=== PATIENT | male | born 1950 | race Caucasian/White ===

== ENCOUNTER 2016-06-02 14:26 | Inpatient (IN) | payer OTHER ==
[~2016-06-02] VITALS: Ht 185.4 cm; Wt 134.9 kg
[2016-06-02] VITALS (8 sets, daily range): BP systolic 111–118; BP diastolic 55–57; PULSE 53–60; RESP 24; TEMP 96.8–97.2; O2SAT 100
[~2016-06-02 14:26] MED LIST: ALLO100T PO; ASPI325T PO; METO50TA PO; PRED50TA PO
[2016-06-02] MEDS ORDERED: PROPOFOL 1000 MG/100 ML INJ 100 ML ONE (14:32)
[2016-06-02 14:48] LABS: AUTOMATED NEUTROPHIL # 6.2 TH/MM3 (1.8-7.7); BASOPHIL # 0.1 TH/MM3 (0-0.2); BASOPHIL % 0.9 % (0.0-2.0); EOSINOPHIL # 0.1 TH/MM3 (0-0.4); EOSINOPHIL % 1.4 % (0.0-4.0); HEMATOCRIT 37.3 % (39.0-51.0); HEMO FLAGS DIFF FINAL; LYMPH % 18.6 % (9.0-44.0); LYMPHOCYTE # 1.6 TH/MM3 (1.0-4.8); MEAN CELL VOLUME 89.3 FL (80.0-100.0); MEAN CORPUSCULAR HEMOGLOBIN 30.4 PG (27.0-34.0); MEAN CORPUSCULAR HGB CONC 34.1 % (32.0-36.0); MONO % 6.5 % (0.0-8.0); NEUT % 72.6 % (16.0-70.0); PLATELET COUNT 231 TH/MM3 (150-450); RED BLOOD COUNT 4.17 MIL/MM3 (4.50-5.90); RED CELL DISTRIBUTION WIDTH 14.1 % (11.6-17.2); WHITE BLOOD COUNT 8.5 TH/MM3 (4.0-11.0)
[2016-06-02 14:50] LABS: I-STAT POTASSIUM 5.4 MMOL/L (3.5-4.9)
[2016-06-02] MEDS ORDERED: IOHEXOL 350 MG/ML 10 ML VIAL (for RAD DIAG) IV ONE (14:54)
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
[2016-06-02 14:58] LABS: APTT (PATIENT) 21.1 SEC (24.3-30.1); INTERNATIONAL NORMALIZED RATIO 0.9 RATIO; PROTHROMBIN TIME - PATIENT 10.4 SEC (9.8-11.6)
[2016-06-02] MEDS ORDERED: ceFAZolin 2 GM PREMIX 50 ML IV STA (15:10)
[2016-06-02] MEDS ORDERED: DIPHTH/TETANUS/ACEL PERTUSSIS (BOOSTER) 0.5 ML VIAL/PFS IM ONE ×2 (15:10→15:28)
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
[2016-06-02] MEDS ORDERED: ceFAZolin 2 GM PREMIX 50 ML ONE (15:28)
[2016-06-02] MEDS ORDERED: SODIUM CHLOR 0.9% 1000 ML INJ 1,000 ML IV SCH (15:46)
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
[2016-06-02] MEDS: fentaNYL DRIP 250 ML IV SCH (16:00)
[2016-06-02] MEDS ORDERED: SODIUM CHLORIDE 0.9% FLUSH 10 ML FLUSH IV FLUSH PRN ×2 (16:00→18:00)
[2016-06-02] MEDS ORDERED: PROPOFOL 1000 MG/100 ML INJ 100 ML IV SCH (16:00)
[2016-06-02] MEDS ORDERED: CHLORHEXIDINE GLUCONATE 2 % 1 PACK (2 CLOTHS) TOP PRN ×2 (16:00→18:00)
[2016-06-02] MEDS ORDERED: MISCELLANEOUS NURSING INFORMATION XX SCH ×2 (16:00→18:00)
[2016-06-02] MEDS ORDERED: fentaNYL DRIP 250 ML IV SCH (16:00)
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
[2016-06-02] MEDS ORDERED: NOREPINEPHRINE-DEXTROSE DRIP 250 ML IV SCH (16:45)
[2016-06-02] MEDS ORDERED: SODIUM CHLORIDE 0.9% FLUSH 10 ML FLUSH IVF PRN (16:45)
[2016-06-02] MEDS ORDERED: SODIUM CHLOR 0.9% 1000 ML INJ 1,000 ML IV ONE ×5 (16:45→23:15)
[2016-06-02] MEDS ORDERED: TERBUTALINE INJ 1 MG/ML AMP SQ PRN ×2 (16:45→21:15)
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
--- NOTE | 2016-06-02 17:21 | PD.PROCEDR ---
Procedure Note Procedure DATE: 06/02/2016 ARTERIAL LINE PLACEMENT: [] vein. Ultrasound-guided INDICATION: Hemodynamic access DESCRIPTION OF THE PROCEDURE The patient was placed in supine position. The skin was cleansed with Chloraprep. Additional barrier precautions included large sterile drape, sterile gloves, sterile gown, face mask, and hat. 1 % lidocaine was used for local anesthesia. Under direct ultrasound guidance and on second attempt, the left femoral artery was accessed with an introducer needle. The guide wire was advanced. Using Seldinger technique a 20 [place] 12 cm femoral artery catheter was advanced to a depth of 12 centimeters. The guide wire was removed. The single port had return of bright red pulsatile blood and flushed easily with saline. The central line was secured with 2.0 silk. A sterile dressing with antibiotic disc was applied. ESTIMATED BLOOD LOSS: Minimal COMPLICATIONS: No apparent complications. Sha Tapia MD Jun 02, 2016 17:21
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
[2016-06-02 17:37] LABS: HEMATOCRIT 29.2 % (39.0-51.0); MEAN CELL VOLUME 90.4 FL (80.0-100.0); MEAN CORPUSCULAR HEMOGLOBIN 30.1 PG (27.0-34.0); MEAN CORPUSCULAR HGB CONC 33.3 % (32.0-36.0); PLATELET COUNT 193 TH/MM3 (150-450); RED BLOOD COUNT 3.23 MIL/MM3 (4.50-5.90); RED CELL DISTRIBUTION WIDTH 14.3 % (11.6-17.2); REVIEW FLAG FINAL; WHITE BLOOD COUNT 10.8 TH/MM3 (4.0-11.0)
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
[2016-06-02 17:46] LABS: APTT (PATIENT) 21.9 SEC (24.3-30.1); PROTHROMBIN TIME - PATIENT 11.2 SEC (9.8-11.6)
[2016-06-02] MEDS: ARTIFICIAL TEARS OPTH SOLN 15 ML BTL EACH EYE SCH (18:00)
[2016-06-02] MEDS ORDERED: ONDANSETRON HCL 4 MG/2 ML VIAL IV PRN (18:00)
[2016-06-02] MEDS ORDERED: 3% SALINE INJ 500 ML IV SCH (18:00)
[2016-06-02] MEDS ORDERED: levETIRAcetam INJ 500 MG in SODIUM CHLORIDE 0.9% INJ 100 ML IV ONE (18:00)
[2016-06-02 18:13] LABS: BLOOD GAS CARBOXYHEMOGLOBIN 0.5 % (0-4); BLOOD GAS HCO3 17 mmol/L (22-26); BLOOD GAS METHEMOGLOBIN 1.2 % (0-2); BLOOD GAS O2 HGB SATURATION 98 % (90-100); BLOOD GAS OXYGEN CONTENT 14.2 Vol % (12.0-20.0); BLOOD GAS PCO2 44 mmHg (38-42); BLOOD GAS PO2 495 mmHg (61-120); BLOOD GAS TOTAL HGB 9.4 G/DL (12.0-16.0); CRITICAL VALUE YES; DRAW SITE ART LINE; FIO2 100 %; OXYGEN DEVICE VENTILATOR; STAT NO; TEMP CORR TO 98.6
[2016-06-02 18:15] LABS: ALKALINE PHOSPHATASE 63 U/L (45-117); ALT (GPT) 22 U/L (12-78); ANION GAP 9 MEQ/L (5-15); AST (GOT) 30 U/L (15-37); BICARBONATE 20.4 MEQ/L (21.0-32.0); BLOOD UREA NITROGEN 32 MG/DL (7-18); CHLORIDE 115 MEQ/L (98-107); CREATINE KINASE 758 U/L (39-308); GLOMERULAR FILTRATION RATE 37 ML/MIN (>89); POTASSIUM 4.9 MEQ/L (3.5-5.1); SODIUM (NA) 144 MEQ/L (136-145); TOTAL BILIRUBIN ADULT 0.4 MG/DL (0.2-1.0)
[2016-06-02] MEDS ORDERED: SODIUM BICARBONATE 8.4% INJ 50 MEQ/50 ML SYR ONE (18:16)
[2016-06-02] MEDS: MIDAZOLAM 100 MG/ML INJ 100 ML IV SCH (18:22)
[2016-06-02 19:16] LABS: BLOOD GAS CARBOXYHEMOGLOBIN 0.7 % (0-4); BLOOD GAS HCO3 19 mmol/L (22-26); BLOOD GAS O2 HGB SATURATION 98 % (90-100); BLOOD GAS OXYGEN CONTENT 13.6 Vol % (12.0-20.0); BLOOD GAS PCO2 42 mmHg (38-42); BLOOD GAS PO2 208 mmHg (61-120); BLOOD GAS TOTAL HGB 9.6 G/DL (12.0-16.0); CRITICAL VALUE YES; DRAW SITE ART LINE; FIO2 50 %; OXYGEN DEVICE VENTILATOR; TEMP CORR TO 98.6; VENT SETTINGS VAC/20/600/PEEP+5
[2016-06-02 19:17] LABS: STAT NO; ULNAR PULSE PRESENT
[2016-06-02 20:00] LABS: BLOOD GAS BASE EXCESS -6.6 mmol/L (-2-2); BLOOD GAS CARBOXYHEMOGLOBIN 0.8 % (0-4); BLOOD GAS HCO3 18 mmol/L (22-26); BLOOD GAS O2 HGB SATURATION 98 % (90-100); BLOOD GAS OXYGEN CONTENT 12.9 Vol % (12.0-20.0); BLOOD GAS PCO2 36 mmHg (38-42); BLOOD GAS PO2 185 mmHg (61-120); BLOOD GAS TOTAL HGB 9.1 G/DL (12.0-16.0); CRITICAL VALUE NO; OXYGEN DEVICE VENTILATOR; TEMP CORR TO 98.6
[2016-06-02] MEDS ORDERED: PHYTONADIONE INJ 10 MG in SODIUM CHLORIDE 0.9% INJ 50 ML IV ONE (20:00)
[2016-06-02] MEDS: CHLORHEXIDINE 0.12% (ORAL KIT) 15 ML CUP MT SCH (20:00)
[2016-06-02 20:01] LABS: DRAW SITE ART LINE; FIO2 40 %; STAT YES; ULNAR PULSE PRESENT; VENT SETTINGS AC/24/600/PEEP+5
[2016-06-02] MEDS: DOCUSATE SODIUM 100 MG CAP PO SCH (21:00)
[2016-06-02] MEDS ORDERED: SODIUM CHLORIDE 0.9% FLUSH 10 ML FLUSH IV FLUSH SCH (21:00)
[2016-06-02] MEDS: SODIUM CHLORIDE 0.9% FLUSH 10 ML FLUSH IV FLUSH SCH (21:00)
[2016-06-02] MEDS: levETIRAcetam INJ 500 MG in SODIUM CHLORIDE 0.9% INJ 100 ML IV SCH (21:00)
[2016-06-02] MEDS ORDERED: NOREPINEPHRINE 4 MG/4 ML AMP ONE (21:04)
[2016-06-02] MEDS ORDERED: NOREPINEPHRINE INJ 4 MG in SODIUM CHLOR 0.9% 250 ML INJ 246 ML IV SCH (21:15)
[2016-06-02] MEDS ORDERED: ATROPINE SULFATE 1 MG/10 ML SYRINGE ONE (21:24)
[2016-06-02] MEDS ORDERED: EPINEPHrine HCL (1:10,000) 1 MG/10 ML SYRINGE ONE (21:24)
[2016-06-02] MEDS ORDERED: SODIUM PHOSPHATE INJ 15 MMOL in SODIUM CHLORIDE 0.9% INJ 150 ML IV ONE (22:00)
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
[2016-06-02] MEDS: RESP: ALBUTEROL 2.5 MG/IPRATROPIUM 0.5 MG NEB (SCH) INH (22:28)
[2016-06-02 22:45] LABS: HEMATOCRIT 27.6 % (39.0-51.0); MEAN CELL VOLUME 88.5 FL (80.0-100.0); MEAN CORPUSCULAR HEMOGLOBIN 29.7 PG (27.0-34.0); MEAN CORPUSCULAR HGB CONC 33.5 % (32.0-36.0); PLATELET COUNT 155 TH/MM3 (150-450); RED BLOOD COUNT 3.12 MIL/MM3 (4.50-5.90); RED CELL DISTRIBUTION WIDTH 15.1 % (11.6-17.2); REVIEW FLAG FINAL; WHITE BLOOD COUNT 8.3 TH/MM3 (4.0-11.0)
[2016-06-02] MEDS: FAMOTIDINE 20 MG/2 ML VIAL IV PUSH SCH (23:06)
[2016-06-03] VITALS (23 sets, daily range): BP systolic 113–140; BP diastolic 50–62; PULSE 48–79; RESP 22–26; TEMP 96.1–98.6; O2SAT 96–100
[2016-06-03 01:25] LABS: AUTOMATED NEUTROPHIL # 5.1 TH/MM3 (1.8-7.7); BASOPHIL % 0.3 % (0.0-2.0); EOSINOPHIL % 0.2 % (0.0-4.0); HEMATOCRIT 27.6 % (39.0-51.0); HEMO FLAGS DIFF FINAL; LYMPHOCYTE # 0.8 TH/MM3 (1.0-4.8); MEAN CORPUSCULAR HEMOGLOBIN 29.7 PG (27.0-34.0); MEAN CORPUSCULAR HGB CONC 33.7 % (32.0-36.0); MONO % 10.8 % (0.0-8.0); NEUT % 76.7 % (16.0-70.0); PLATELET COUNT 139 TH/MM3 (150-450); RED BLOOD COUNT 3.13 MIL/MM3 (4.50-5.90); WHITE BLOOD COUNT 6.7 TH/MM3 (4.0-11.0)
[2016-06-03] MEDS: RESP: ALBUTEROL 2.5 MG/IPRATROPIUM 0.5 MG NEB (SCH) INH ×4 (03:55→19:48)
[2016-06-03] MEDS ORDERED: CHLORHEXIDINE GLUCONATE 2 % 1 PACK (2 CLOTHS) TOP SCH (04:00)
[2016-06-03] MEDS: CHLORHEXIDINE GLUCONATE 2 % 1 PACK (2 CLOTHS) TOP SCH (04:21)
[2016-06-03] MEDS: fentaNYL DRIP 250 ML IV SCH ×2 (04:22→13:00)
[2016-06-03] MEDS: PROPOFOL 1000 MG/100 ML INJ 100 ML IV SCH ×2 (04:22→19:33)
[2016-06-03 05:14] LABS: BLOOD GAS BASE EXCESS -5.9 mmol/L (-2-2); BLOOD GAS CARBOXYHEMOGLOBIN 1.4 % (0-4); BLOOD GAS HCO3 18 mmol/L (22-26); BLOOD GAS METHEMOGLOBIN 0.8 % (0-2); BLOOD GAS O2 HGB SATURATION 97 % (90-100); BLOOD GAS OXYGEN CONTENT 11.8 Vol % (12.0-20.0); BLOOD GAS PCO2 32 mmHg (38-42); BLOOD GAS PO2 184 mmHg (61-120); BLOOD GAS TOTAL HGB 8.3 G/DL (12.0-16.0); CRITICAL VALUE NO; DRAW SITE ALINE; FIO2 40 %; OXYGEN DEVICE VENTILATOR; STAT NO; TEMP CORR TO 98.6; VENT SETTINGS AC/24/600/PEEP5
[2016-06-03 05:43] LABS: AUTOMATED NEUTROPHIL # 3.9 TH/MM3 (1.8-7.7); BASOPHIL % 0.4 % (0.0-2.0); EOSINOPHIL % 0.5 % (0.0-4.0); HEMATOCRIT 27.6 % (39.0-51.0); HEMO FLAGS DIFF FINAL; LYMPH % 18.9 % (9.0-44.0); LYMPHOCYTE # 1.1 TH/MM3 (1.0-4.8); MEAN CELL VOLUME 88.5 FL (80.0-100.0); MEAN CORPUSCULAR HEMOGLOBIN 29.1 PG (27.0-34.0); MEAN CORPUSCULAR HGB CONC 32.9 % (32.0-36.0); MONO % 10.5 % (0.0-8.0); NEUT % 69.7 % (16.0-70.0); PLATELET COUNT 125 TH/MM3 (150-450); RED BLOOD COUNT 3.12 MIL/MM3 (4.50-5.90); RED CELL DISTRIBUTION WIDTH 15.4 % (11.6-17.2); WHITE BLOOD COUNT 5.6 TH/MM3 (4.0-11.0)
[2016-06-03 05:58] LABS: BICARBONATE 21.4 MEQ/L (21.0-32.0); POTASSIUM 4.3 MEQ/L (3.5-5.1)
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
[2016-06-03] MEDS: MIDAZOLAM 100 MG/ML INJ 100 ML IV SCH ×2 (06:09→19:33)
[2016-06-03 06:12] LABS: CALCIUM-PROTEIN CORRECTED 8.2 MG/DL (8.5-10.1)
[2016-06-03] MEDS ORDERED: MAGNESIUM SULFATE INJ 2 GM in SODIUM CHLORIDE 0.9% INJ 96 ML IV PRN (07:00)
[2016-06-03] MEDS ORDERED: DEXTROSE 50% IN WATER 50 ML VIAL(D50) IV PUSH PRN (07:00)
[2016-06-03] MEDS ORDERED: POTASSIUM CHLOR 20 MEQ PREMIX 100 ML IV PRN ×2 (07:00)
[2016-06-03] MEDS ORDERED: POTASSIUM CHLOR 40 MEQ PREMIX 100 ML IV PRN ×2 (07:00)
[2016-06-03] MEDS ORDERED: POTASSIUM PHOSPHATE INJ 30 MMOL in SODIUM CHLOR 0.9% 250 ML INJ 250 ML IV PRN (07:00)
[2016-06-03] MEDS ORDERED: SODIUM PHOSPHATE INJ 30 MMOL in SODIUM CHLOR 0.9% 250 ML INJ 240 ML IV PRN (07:00)
[2016-06-03] MEDS ORDERED: POTASSIUM PHOSPHATE MONOBASIC 500 MG TAB PO/TUBE PRN (07:00)
[2016-06-03] MEDS ORDERED: GLUCAGON 1 MG/ML VIAL OTHER PRN (07:00)
[2016-06-03] MEDS ORDERED: MAGNESIUM SULFATE INJ 4 GM in SODIUM CHLORIDE 0.9% INJ 92 ML IV PRN (07:00)
[2016-06-03] MEDS ORDERED: POTASSIUM PHOSPHATE MONOBASIC 500 MG TAB PO PRN (07:00)
[2016-06-03] MEDS ORDERED: MAGNESIUM OXIDE 400 MG TAB PO PRN (07:00)
[2016-06-03 07:22] LABS: MAGNESIUM 1.9 MG/DL (1.5-2.5)
[2016-06-03 07:23] LABS: INDIRECT BILIRUBIN 0.6 MG/DL (0.0-0.8); TOTAL BILIRUBIN ADULT 0.8 MG/DL (0.2-1.0)
--- NOTE | 2016-06-03 07:44 | RADRPT ---
EXAM DATE/TIME: 06/03/2016 06:06 [facility] COMPARISON: CHEST SINGLE AP, June 02, 2016, 16:34. INDICATIONS : Short of breath, respiratory failure MEDICAL HISTORY : ICH, pneumothorax SURGICAL HISTORY : chest tube ENCOUNTER: Subsequent ACUITY: 2 days PAIN SCORE: Non-responsive. LOCATION: Bilateral chest FINDINGS: A single view of the chest demonstrates slight elevation left hemidiaphragm with left basilar atelect asis. Right lung clear. Endotracheal tube, nasogastric tube and right subclavian central line are sta ble position. Multiple left-sided rib fractures and left clavicle fracture. No definite pneumothorax. Left-sided chest tube in the left lung base is stable. The cardiomediastinal contours are unremarkab le. Osseous structures are intact. CONCLUSION: 1. Slight elevation left hemidiaphragm and left basal atelectasis. 2. Support lines and tubes are stable. 3. Left-sided chest tube without pneumothorax. Boy Mistry MD on June 03, 2016 at 7:42 Board Certified Radiologist. This report was verified electronically.
[2016-06-03] MEDS: INSULIN NovoLIN REGULAR SUPPLEMENTAL SCALE SQ SCH ×4 (08:00→20:00)
[2016-06-03] MEDS: BENEPROTEIN POWDER 1 PACK G-TUBE SCH ×3 (08:15→18:00)
[2016-06-03] MEDS: DOCUSATE SODIUM 100 MG CAP PO SCH ×2 (09:00→21:00)
[2016-06-03] MEDS: ARTIFICIAL TEARS OPTH SOLN 15 ML BTL EACH EYE SCH ×3 (09:00→18:00)
[2016-06-03] MEDS: LACTULOSE SYRUP 20 GM/30 ML CUP PO SCH (09:06)
[2016-06-03] MEDS: FAMOTIDINE 20 MG/2 ML VIAL IV PUSH SCH ×2 (09:06→20:59)
[2016-06-03] MEDS: SODIUM CHLORIDE 0.9% FLUSH 10 ML FLUSH IV FLUSH SCH ×2 (09:07→21:00)
[2016-06-03] MEDS: levETIRAcetam INJ 500 MG in SODIUM CHLORIDE 0.9% INJ 100 ML IV SCH ×2 (09:07→21:00)
[2016-06-03] MEDS: SODIUM CHLORIDE 0.9% FLUSH 10 ML FLUSH IVF SCH (09:07)
[2016-06-03] MEDS: SODIUM CHLOR 0.9% 1000 ML INJ 1,000 ML IV SCH ×2 (09:08→19:55)
[2016-06-03] MEDS: CHLORHEXIDINE 0.12% (ORAL KIT) 15 ML CUP MT SCH ×2 (09:08→20:08)
--- NOTE | 2016-06-03 11:32 | RADRPT ---
EXAM DATE/TIME: 06/03/2016 10:59 [facility] COMPARISON: CT BRAIN W/O CONTRAST, June 02, 2016, 14:46. INDICATIONS : Follow-up for intracranial hemorrhage. RADIATION DOSE: 55.50 CTDIvol (mGy) MEDICAL HISTORY : Non-responsive. SURGICAL HISTORY : Non-responsive. ENCOUNTER: Initial ACUITY: 1 day PAIN SCALE: Non-responsive LOCATION: cranial TECHNIQUE: Multiple contiguous axial images were obtained of the head. Using automated exposure control and adj ustment of the mA and/or kV according to patient size, radiation dose was kept as low as reasonably a chievable to obtain optimal diagnostic quality images. FINDINGS: The only interval change from the prior study has been the development of small volume subarachnoid h emorrhage scattered over both cerebral convexities. The intraparenchymal hemorrhages as well as the r ight subdural hemorrhage are stable. There has been interval placement of an intracranial pressure mo nitoring device involving the right frontotemporal region. Ventricles remain patent. Suprasellar cist favio remains patent. Posterior cranial fossa is unremarkable. Calvarium is intact. Small air-fluid lev els are seen involving the sphenoid sinuses bilaterally. Paranasal sinuses and mastoid air cells are otherwise clear. CONCLUSION: 1. The only interval change has been the development of small volume subarachnoid hemorrhage bilatera lly. The remaining sites of hemorrhage are stable. 2. No signs of herniation or midline shift. Jason Holden Jr., MD on June 03, 2016 at 11:25 Board Certified Radiologist. This report was verified electronically.
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
[2016-06-03 12:29] LABS: HEMATOCRIT 28.9 % (39.0-51.0); MEAN CELL VOLUME 88.2 FL (80.0-100.0); MEAN CORPUSCULAR HEMOGLOBIN 29.2 PG (27.0-34.0); MEAN CORPUSCULAR HGB CONC 33.1 % (32.0-36.0); PLATELET COUNT 121 TH/MM3 (150-450); RED BLOOD COUNT 3.27 MIL/MM3 (4.50-5.90); REVIEW FLAG FINAL
--- NOTE | 2016-06-03 12:37 | EC ---
Study Study Date:06/03/2016 STUDY CONCLUSIONS SUMMARY - Left ventricle: The cavity size was normal. Wall thickness was normal. Systolic function was normal. The estimated ejection fraction was in the range of 55% to 60%. Wall motion was normal; there were no regional wall motion abnormalities. - Tricuspid valve: Mild regurgitation. If LV function is below 40, please consider prescribing an ACEI or ARB or document rationale for non-use. PROCEDURE DATA STUDY STATUS: Elective. Procedure: Transthoracic echocardiography. Image quality was good. Scanning was performed from the parasternal, apical, and subcostal acoustic windows. Study completion: The patient tolerated the procedure well. Transthoracic echocardiography. M-mode, complete 2D, complete spectral Doppler, and color Doppler. Patient status: Inpatient. CARDIAC ANATOMY LEFT VENTRICLE: The cavity size was normal. Wall thickness was normal. Systolic function was normal. The estimated ejection fraction was in the range of 55% to 60%. Wall motion was normal; there were no regional wall motion abnormalities. AORTIC VALVE: Trileaflet; normal thickness leaflets. Doppler: Transvalvular velocity was within the normal range. There was no stenosis. No regurgitation. AORTA: Aortic root: The aortic root was normal in size. MITRAL VALVE: Structurally normal valve. Doppler: Transvalvular velocity was within the normal range. There was no evidence for stenosis. No regurgitation. LEFT ATRIUM: The atrium was normal in size. RIGHT VENTRICLE: The cavity size was normal. Wall thickness was normal. PULMONIC VALVE: Doppler: Transvalvular velocity was within the normal range. There was no evidence for stenosis. No regurgitation. TRICUSPID VALVE: Structurally normal valve. Doppler: Transvalvular velocity was within the normal range. Mild regurgitation. PULMONARY ARTERY: The main pulmonary artery was normal-sized. Systolic pressure was within the normal range. RIGHT ATRIUM: The atrium was normal in size. PERICARDIUM: There was no pericardial effusion. SYSTEMIC VEINS: Inferior vena cava: The vessel was normal in size. Prepared and signed by Ronen Rowe [id number]
[2016-06-03 12:41] LABS: MAGNESIUM 1.9 MG/DL (1.5-2.5)
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
[2016-06-03] MEDS: NOREPINEPHRINE INJ 4 MG in SODIUM CHLOR 0.9% 250 ML INJ 246 ML IV SCH ×3 (13:00→22:47)
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
[2016-06-03] MEDS ORDERED: MAGNESIUM SULFATE 1 GM PREMIX 100 ML IV ONE (15:30)
[2016-06-03 17:47] LABS: BLOOD GAS BASE EXCESS -8.7 mmol/L (-2-2); BLOOD GAS CARBOXYHEMOGLOBIN 1.2 % (0-4); BLOOD GAS HCO3 16 mmol/L (22-26); BLOOD GAS METHEMOGLOBIN 0.7 % (0-2); BLOOD GAS O2 HGB SATURATION 97 % (90-100); BLOOD GAS OXYGEN CONTENT 12.8 Vol % (12.0-20.0); BLOOD GAS PCO2 34 mmHg (38-42); BLOOD GAS PO2 147 mmHg (61-120); BLOOD GAS TOTAL HGB 9.2 G/DL (12.0-16.0); CRITICAL VALUE YES; DRAW SITE ART LINE; FIO2 40 %; OXYGEN DEVICE VENTILATOR; TEMP CORR TO 98.6; VENT SETTINGS 26/600/+5/40%
[2016-06-03 17:48] LABS: STAT NO
[2016-06-03] MEDS ORDERED: SODIUM CHLOR 0.9% 1000 ML INJ 1,000 ML IV ONE (18:00)
[2016-06-03] MEDS ORDERED: SODIUM BICARBONATE 8.4% INJ 50 MEQ/50 ML SYR IV PUSH ONE (18:00)
[2016-06-03] MEDS: POTASSIUM PHOSPHATE/SODIUM PHOSPHATE 250 MG TAB OG-TUBE SCH (21:41)
[2016-06-03 23:41] LABS: BLOOD GAS BASE EXCESS -6.1 mmol/L (-2-2); BLOOD GAS CARBOXYHEMOGLOBIN 1.2 % (0-4); BLOOD GAS HCO3 18 mmol/L (22-26); BLOOD GAS O2 HGB SATURATION 97 % (90-100); BLOOD GAS PCO2 29 mmHg (38-42); BLOOD GAS PO2 171 mmHg (61-120); BLOOD GAS TOTAL HGB 9.2 G/DL (12.0-16.0); TEMP CORR TO 98.6
[2016-06-03 23:42] LABS: CRITICAL VALUE NO; DRAW SITE ART LINE; FIO2 40 %; OXYGEN DEVICE VENTILATOR; STAT NO; VENT SETTINGS AC/26/600/PEEP 5
[2016-06-04] VITALS (19 sets, daily range): BP systolic 92–160; BP diastolic 44–69; PULSE 62–110; RESP 20–24; TEMP 96.6–101.5; O2SAT 97–100
[2016-06-04] MEDS: CHLORHEXIDINE GLUCONATE 2 % 1 PACK (2 CLOTHS) TOP SCH (04:00)
[2016-06-04] MEDS: INSULIN NovoLIN REGULAR SUPPLEMENTAL SCALE SQ SCH ×6 (04:00→20:00)
[2016-06-04] MEDS: RESP: ALBUTEROL 2.5 MG/IPRATROPIUM 0.5 MG NEB (SCH) INH ×4 (04:05→20:24)
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
[2016-06-04 05:40] LABS: AUTOMATED NEUTROPHIL # 3.4 TH/MM3 (1.8-7.7); BASOPHIL % 0.3 % (0.0-2.0); EOSINOPHIL # 0.1 TH/MM3 (0-0.4); EOSINOPHIL % 2.8 % (0.0-4.0); HEMATOCRIT 27.1 % (39.0-51.0); HEMO FLAGS DIFF FINAL; LYMPH % 17.2 % (9.0-44.0); LYMPHOCYTE # 0.8 TH/MM3 (1.0-4.8); MEAN CELL VOLUME 87.5 FL (80.0-100.0); MEAN CORPUSCULAR HEMOGLOBIN 30.1 PG (27.0-34.0); MEAN CORPUSCULAR HGB CONC 34.4 % (32.0-36.0); MONO % 9.7 % (0.0-8.0); PLATELET COUNT 121 TH/MM3 (150-450); RED CELL DISTRIBUTION WIDTH 15.2 % (11.6-17.2); WHITE BLOOD COUNT 4.9 TH/MM3 (4.0-11.0)
[2016-06-04 05:45] LABS: APTT (PATIENT) 29.2 SEC (24.3-30.1); PROTHROMBIN TIME - PATIENT 11.3 SEC (9.8-11.6)
[2016-06-04 06:09] LABS: BICARBONATE 20.6 MEQ/L (21.0-32.0); CALCIUM-PROTEIN CORRECTED 8.2 MG/DL (8.5-10.1); MAGNESIUM 2.1 MG/DL (1.5-2.5); TOTAL BILIRUBIN ADULT 0.7 MG/DL (0.2-1.0)
[2016-06-04] MEDS: POTASSIUM PHOSPHATE/SODIUM PHOSPHATE 250 MG TAB OG-TUBE SCH ×2 (06:48→14:00)
--- NOTE | 2016-06-04 07:00 | RADRPT ---
EXAM DATE/TIME: 06/04/2016 06:28 [facility] COMPARISON: CHEST SINGLE AP, June 03, 2016, 6:06. INDICATIONS : Evaluate for respiratory failure. MEDICAL HISTORY : ICH, pneumothorax. SURGICAL HISTORY : None. ENCOUNTER: Subsequent ACUITY: 3 days PAIN SCORE: Non-responsive. LOCATION: chest FINDINGS: Portable AP view of the chest demonstrate a normal-sized cardiac silhouette. ETT, nasogastric tube, a nd right subclavian central line remain present. Left chest tube is present and no pneumothorax is vi sualized. The lungs are underinflated with atelectasis at the bases. Multiple left-sided fractures ar e visualized including the ribs, clavicle, and scapula. CONCLUSION: Stable chest x-ray. Left chest tube is present and no the pneumothorax is visualized. There is atelec tasis at the lung bases. Olegario Yusuf MD on June 04, 2016 at 6:58 Board Certified Radiologist. This report was verified electronically.
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
[2016-06-04] MEDS ORDERED: SODIUM PHOSPHATE INJ 15 MMOL in SODIUM CHLORIDE 0.9% INJ 150 ML IV ONE (08:00)
[2016-06-04] MEDS: SODIUM CHLOR 0.9% 1000 ML INJ 1,000 ML IV SCH (08:17)
[2016-06-04] MEDS: SODIUM CHLORIDE 0.9% FLUSH 10 ML FLUSH IVF SCH (08:57)
[2016-06-04] MEDS: SODIUM CHLORIDE 0.9% FLUSH 10 ML FLUSH IV FLUSH SCH ×2 (08:57→21:27)
[2016-06-04] MEDS: ARTIFICIAL TEARS OPTH SOLN 15 ML BTL EACH EYE SCH ×4 (09:00→18:00)
[2016-06-04] MEDS: BENEPROTEIN POWDER 1 PACK G-TUBE SCH ×3 (09:00→18:00)
[2016-06-04] MEDS: SENNOSIDES SYRUP 8.8 MG/5 ML CUP PEG SCH ×2 (09:10→21:26)
[2016-06-04] MEDS: MIDAZOLAM 100 MG/ML INJ 100 ML IV SCH (09:10)
[2016-06-04] MEDS: LACTULOSE SYRUP 20 GM/30 ML CUP PO SCH (09:10)
[2016-06-04] MEDS: levETIRAcetam INJ 500 MG in SODIUM CHLORIDE 0.9% INJ 100 ML IV SCH ×2 (09:10→21:27)
[2016-06-04] MEDS: DOCUSATE SODIUM 100 MG CAP PO SCH ×2 (09:10→21:27)
[2016-06-04] MEDS: CHLORHEXIDINE 0.12% (ORAL KIT) 15 ML CUP MT SCH ×2 (09:15→21:27)
[2016-06-04] MEDS: BACITRACIN TOP OINT 15 GM TUBE TOPICAL SCH ×3 (09:16→21:28)
[2016-06-04] MEDS: NOREPINEPHRINE INJ 4 MG in SODIUM CHLOR 0.9% 250 ML INJ 246 ML IV SCH (09:26)
[2016-06-04] MEDS: FAMOTIDINE 20 MG/2 ML VIAL IV PUSH SCH ×2 (09:58→21:27)
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
[2016-06-04] MEDS: POTASSIUM PHOSPHATE/SODIUM PHOSPHATE 250 MG TAB PO SCH ×3 (12:00→18:00)
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
--- NOTE | 2016-06-04 16:38 | EKG ---
Date Performed: 06/03/2016 Time Performed: 08:04:08 PTAGE: 65 years EKG: Sinus bradycardia Prolonged QT interval Compared to prior tracing no significant change Bor derline ECG PREVIOUS TRACING : 01/13/2013 18.26 DOCTOR: Paty Mcknight Interpretating Date/Time 06/04/2016 16:36:32
[2016-06-04] MEDS: ACETAMINOPHEN 325 MG TAB PO PRN (16:46)
[2016-06-04] MEDS: fentaNYL DRIP 250 ML IV SCH (23:49)
[2016-06-05] VITALS (20 sets, daily range): BP systolic 116–163; BP diastolic 52–70; PULSE 101–169; RESP 20–23; TEMP 99–101.3; O2SAT 97–100
[2016-06-05] MEDS ORDERED: SODIUM CHLORID 0.9% 500 ML INJ 500 ML IV ONE (00:15)
[2016-06-05] MEDS: NOREPINEPHRINE INJ 4 MG in SODIUM CHLOR 0.9% 250 ML INJ 246 ML IV SCH (00:18)
[2016-06-05] MEDS: RESP: ALBUTEROL 2.5 MG/IPRATROPIUM 0.5 MG NEB (SCH) INH ×4 (03:40→22:40)
[2016-06-05] MEDS: INSULIN NovoLIN REGULAR SUPPLEMENTAL SCALE SQ SCH ×6 (04:00→20:00)
[2016-06-05] MEDS: CHLORHEXIDINE GLUCONATE 2 % 1 PACK (2 CLOTHS) TOP SCH (04:00)
[2016-06-05 04:37] LABS: AUTOMATED NEUTROPHIL # 1.3 TH/MM3 (1.8-7.7); BASOPHIL % 0.2 % (0.0-2.0); EOSINOPHIL % 2.3 % (0.0-4.0); HEMATOCRIT 25.3 % (39.0-51.0); HEMO FLAGS DIFF FINAL; LYMPHOCYTE # 0.3 TH/MM3 (1.0-4.8); MEAN CELL VOLUME 89.4 FL (80.0-100.0); MEAN CORPUSCULAR HEMOGLOBIN 29.3 PG (27.0-34.0); MEAN CORPUSCULAR HGB CONC 32.8 % (32.0-36.0); MONO % 17.3 % (0.0-8.0); NEUT % 66.2 % (16.0-70.0); PLATELET COUNT 104 TH/MM3 (150-450); RED BLOOD COUNT 2.83 MIL/MM3 (4.50-5.90); RED CELL DISTRIBUTION WIDTH 15.4 % (11.6-17.2)
[2016-06-05 04:53] LABS: CALCIUM-PROTEIN CORRECTED 8.3 MG/DL (8.5-10.1); MAGNESIUM 2.2 MG/DL (1.5-2.5); POTASSIUM 4.5 MEQ/L (3.5-5.1); TOTAL BILIRUBIN ADULT 0.4 MG/DL (0.2-1.0)
[2016-06-05] MEDS: SODIUM CHLOR 0.9% 1000 ML INJ 1,000 ML IV SCH (05:00)
[2016-06-05] MEDS: POTASSIUM PHOSPHATE/SODIUM PHOSPHATE 250 MG TAB PO SCH ×3 (06:00→18:00)
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
[2016-06-05] MEDS: DOCUSATE SODIUM 100 MG CAP PO SCH ×2 (09:00→20:31)
[2016-06-05] MEDS: CHLORHEXIDINE 0.12% (ORAL KIT) 15 ML CUP MT SCH ×2 (09:50→20:00)
[2016-06-05] MEDS: ARTIFICIAL TEARS OPTH SOLN 15 ML BTL EACH EYE SCH ×3 (09:51→18:00)
[2016-06-05] MEDS: BENEPROTEIN POWDER 1 PACK G-TUBE SCH ×3 (09:52→18:00)
[2016-06-05] MEDS: levETIRAcetam INJ 500 MG in SODIUM CHLORIDE 0.9% INJ 100 ML IV SCH ×2 (09:52→20:30)
[2016-06-05] MEDS: SENNOSIDES SYRUP 8.8 MG/5 ML CUP PEG SCH ×2 (09:53→20:30)
[2016-06-05] MEDS: FAMOTIDINE 20 MG/2 ML VIAL IV PUSH SCH ×2 (09:53→20:31)
[2016-06-05] MEDS: SODIUM CHLORIDE 0.9% FLUSH 10 ML FLUSH IVF SCH (09:53)
[2016-06-05] MEDS: SODIUM CHLORIDE 0.9% FLUSH 10 ML FLUSH IV FLUSH SCH ×2 (09:53→20:33)
[2016-06-05] MEDS: LACTULOSE SYRUP 20 GM/30 ML CUP PO SCH ×2 (09:53→18:00)
[2016-06-05] MEDS: BACITRACIN TOP OINT 15 GM TUBE TOPICAL SCH ×3 (09:54→22:47)
[2016-06-05] MEDS: MIDAZOLAM 100 MG/ML INJ 100 ML IV SCH (09:54)
--- NOTE | 2016-06-05 09:56 | RADRPT ---
EXAM DATE/TIME: 06/05/2016 09:20 [place] COMPARISON: CHEST SINGLE AP, June 04, 2016, 6:28. INDICATIONS : Desaturation. MEDICAL HISTORY : ICH, pneumothorax. SURGICAL HISTORY : None. ENCOUNTER: Subsequent ACUITY: 4 - 6 days PAIN SCORE: Non-responsive. LOCATION: Chest FINDINGS: ET tube, central venous catheter and nasogastric tube are in good position. Left chest tube is in go od position without pneumothorax. Upper left rib fractures are again noted. CONCLUSION: 1. Better aeration when compared to 06/04/2016. 2. Left chest tube in good position without pneumothorax. 3. Support apparatus in good position. Asif Blunt MD FACR on June 05, 2016 at 9:52 Board Certified Radiologist. This report was verified electronically.
[2016-06-05 10:39] LABS: BLOOD GAS BASE EXCESS -5.3 mmol/L (-2-2); BLOOD GAS CARBOXYHEMOGLOBIN 1.3 % (0-4); BLOOD GAS HCO3 20 mmol/L (22-26); BLOOD GAS O2 HGB SATURATION 96 % (90-100); BLOOD GAS OXYGEN CONTENT 11.7 Vol % (12.0-20.0); BLOOD GAS PCO2 38 mmHg (38-42); BLOOD GAS PO2 106 mmHg (61-120); BLOOD GAS TOTAL HGB 8.5 G/DL (12.0-16.0); CRITICAL VALUE NO; DRAW SITE ART LINE; FIO2 40 %; OXYGEN DEVICE VENTILATOR; STAT NO; TEMP CORR TO 98.6; VENT SETTINGS 600/20/+5
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
[2016-06-05] MEDS: ACETAMINOPHEN 325 MG TAB PO PRN (13:02)
[2016-06-05] MEDS ORDERED: GLYCERIN ADULT 2 GM SUPP RECTAL ONE (13:30)
[2016-06-05] MEDS ORDERED: POLYETHYLENE GLYCOL 17 GM PKG PO ONE (13:30)
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
[2016-06-05] MEDS: FREE WATER G-TUBE SCH (18:00)
[2016-06-05] MEDS: MINERAL OIL LIQUID 30 ML CUP PO SCH (20:30)
[2016-06-05] MEDS ORDERED: METOPROLOL TARTRATE 5 MG/5 ML VIAL ONE (20:36)
[2016-06-05] MEDS ORDERED: GLYCERIN ADULT 2 GM SUPP RECTAL PRN (21:00)
--- NOTE | 2016-06-05 21:49 | RADRPT ---
EXAM DATE/TIME: 06/05/2016 21:02 [place] COMPARISON: CT BRAIN W/O CONTRAST, June 02, 2016, 14:46. CT BRAIN W/O CONTRAST, June 03, 2016, 10:59. INDICATIONS : Altered mental status. Trauma. Decreased level of conciousness. MEDICAL HISTORY : Hypertension. Renal insufficiency, chronic. SURGICAL HISTORY : Cardiac cath. ENCOUNTER: Subsequent ACUITY: 4-6 days PAIN SCORE: 0/10 LOCATION: cranial TECHNIQUE: Multiplanar, multisequence MRI of the brain was performed without contrast. FINDINGS: Prior CT scans had demonstrated bilateral subdural hematomas, scattered parenchymal hemorrhages in th e frontal and parietal region and some mild intraventricular blood. On this MR exam the bilateral fr ontal and mid convexity hemorrhages are similar in appearance. On susceptibility weighted imaging ho wever, there are many more parenchymal hemorrhages, mostly less than 3 mm in size, discernible especi ally in the left frontal and in the posterior parietal. Intraventricular blood in the left occipital horn is similar to CT. Extra-axial fluid/blood is smaller on the MR prior CT. On the diffusion-weighted images, there is evidence of prominent in the mid convexity right parieto-o ccipital region, corresponding to the MCA/STEWARD/STEWARDESS ROOM watershed zone. This is characteristic of an acute inf arction. Posterior fossa structures are grossly intact. CONCLUSION: 1. MRI demonstrates evidence of an acute nonhemorrhagic infarction in the right MCA STEWARD/STEWARDESS ROOM watershed zon e. 2. Bilateral frontal left parietal and bilateral occipital parenchymal hemorrhages. As would be expe cted, many more images are discernible on the susceptibility weighted images and on prior CTs. Jason Hinojosa MD on June 05, 2016 at 21:40 Board Certified Radiologist. This report was verified electronically.
[2016-06-05] MEDS ORDERED: AMIODARONE INJ 450 MG in DEXTROSE 5% IN WATE(EXCEL) INJ 250 ML IV SCH ×2 (22:30)
[2016-06-05] MEDS ORDERED: AMIODARONE INJ 150 MG in DEXTROSE 5% IN WATER 100ML INJ 97 ML IV ONE ×2 (22:30)
[2016-06-06] VITALS (20 sets, daily range): BP systolic 103–210; BP diastolic 54–84; PULSE 76–121; RESP 17–29; TEMP 98.1–101.1; O2SAT 94–100
[2016-06-06] MEDS: CHLORHEXIDINE GLUCONATE 2 % 1 PACK (2 CLOTHS) TOP SCH (00:11)
[2016-06-06] MEDS ORDERED: LABETALOL HCL 100 MG/20 ML VIAL IV ONE (00:45)
[2016-06-06] MEDS: LACTULOSE SYRUP 20 GM/30 ML CUP PO SCH ×4 (00:58→18:00)
[2016-06-06] MEDS: fentaNYL DRIP 250 ML IV SCH ×2 (00:58→20:13)
[2016-06-06] MEDS: ACETAMINOPHEN 325 MG TAB PO PRN ×2 (00:58→04:51)
[2016-06-06] MEDS: POTASSIUM PHOSPHATE/SODIUM PHOSPHATE 250 MG TAB PO SCH ×6 (00:59→18:00)
[2016-06-06] MEDS: RESP: ALBUTEROL 2.5 MG/IPRATROPIUM 0.5 MG NEB (SCH) INH ×4 (03:37→20:21)
[2016-06-06] MEDS: INSULIN NovoLIN REGULAR SUPPLEMENTAL SCALE SQ SCH ×6 (04:00→20:00)
[2016-06-06 04:41] LABS: AUTOMATED NEUTROPHIL # 4.2 TH/MM3 (1.8-7.7); BASOPHIL % 0.2 % (0.0-2.0); EOSINOPHIL % 0.1 % (0.0-4.0); HEMATOCRIT 25.5 % (39.0-51.0); LYMPH % 5.4 % (9.0-44.0); LYMPHOCYTE # 0.3 TH/MM3 (1.0-4.8); MEAN CORPUSCULAR HEMOGLOBIN 29.8 PG (27.0-34.0); MEAN CORPUSCULAR HGB CONC 33.1 % (32.0-36.0); MONO % 7.6 % (0.0-8.0); NEUT % 86.7 % (16.0-70.0); PLATELET COUNT 116 TH/MM3 (150-450); RED BLOOD COUNT 2.84 MIL/MM3 (4.50-5.90); RED CELL DISTRIBUTION WIDTH 15.3 % (11.6-17.2); WHITE BLOOD COUNT 4.8 TH/MM3 (4.0-11.0)
[2016-06-06 04:46] LABS: HEMO FLAGS AUTO DIFF
[2016-06-06 05:09] LABS: ALT (GPT) 14 U/L (12-78); ANION GAP 6 MEQ/L (5-15); AST (GOT) 23 U/L (15-37); BICARBONATE 21.6 MEQ/L (21.0-32.0); BLOOD UREA NITROGEN 22 MG/DL (7-18); CHLORIDE 125 MEQ/L (98-107); GLOMERULAR FILTRATION RATE 28 ML/MIN (>89); MAGNESIUM 2.1 MG/DL (1.5-2.5); POTASSIUM 4.5 MEQ/L (3.5-5.1); SODIUM (NA) 153 MEQ/L (136-145)
[2016-06-06 05:11] LABS: ALKALINE PHOSPHATASE 54 U/L (45-117); TOTAL BILIRUBIN ADULT 0.8 MG/DL (0.2-1.0)
[2016-06-06 05:22] LABS: BANDS 36 % (0-6); NEUTROPHIL # MANUAL DIFF 4.1 TH/MM3 (1.8-7.7); POLYS (SEG NEUTROPHILS) 50 % (16-70); WBC DIFF SAMPLE 100
[2016-06-06 05:23] LABS: OVALOCYTES 1+ (NORMAL); PLATELET ESTIMATE SMEAR LOW (NORMAL); PLATELET MORPHOLOGY NORMAL (NORMAL); SCAN/DIFF FINAL DIFF MANUAL
[2016-06-06] MEDS ORDERED: SODIUM CHLOR 0.9% 1000 ML INJ 1,000 ML IV ONE ×3 (05:45→17:45)
[2016-06-06 05:53] LABS: BLOOD GAS BASE EXCESS -4.6 mmol/L (-2-2); BLOOD GAS CARBOXYHEMOGLOBIN 1.6 % (0-4); BLOOD GAS HCO3 20 mmol/L (22-26); BLOOD GAS METHEMOGLOBIN 0.9 % (0-2); BLOOD GAS O2 HGB SATURATION 96 % (90-100); BLOOD GAS OXYGEN CONTENT 11.1 Vol % (12.0-20.0); BLOOD GAS PCO2 39 mmHg (38-42); BLOOD GAS PO2 123 mmHg (61-120); CRITICAL VALUE NO; OXYGEN DEVICE VENTILATOR; TEMP CORR TO 98.6
[2016-06-06 05:55] LABS: DRAW SITE ART LINE; FIO2 40 %; STAT NO; VENT SETTINGS AC20/600/5PEEP
[2016-06-06] MEDS: FREE WATER G-TUBE SCH ×4 (06:00→18:00)
[2016-06-06] MEDS ORDERED: GLYCERIN ADULT 2 GM SUPP RECTAL PRN (06:00)
[2016-06-06] MEDS ORDERED: METHYLNALTREXONE BROMIDE 12 MG/0.6 ML VIAL SQ ONE (06:00)
[2016-06-06] MEDS ORDERED: GLYCERIN ADULT 2 GM SUPP RECTAL ONE (06:00)
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
[2016-06-06] MEDS ORDERED: ERYTHROMYCIN INJ 250 MG in SODIUM CHLORIDE 0.9% INJ 100 ML IV SCH (06:15)
[2016-06-06] MEDS: DILTIAZEM HCL 30 MG TAB PO SCH ×3 (06:21→18:00)
--- NOTE | 2016-06-06 06:25 | RADRPT ---
EXAM DATE/TIME: 06/06/2016 05:57 [place] COMPARISON: CT ABDOMEN & PELVIS W CONTRAST, June 02, 2016, 14:50. INDICATIONS : Distention. MEDICAL HISTORY : Hypertension. Renal insufficiency, chronic. SURGICAL HISTORY : None. ENCOUNTER: Subsequent ACUITY: 4 - 6 days PAIN SCORE: Non-responsive. LOCATION: abdomen, all quadrants. FINDINGS: 2 supine frontal views of the abdomen demonstrate air distended colon. Nasogastric tube is looped in the stomach. No organomegaly is appreciated. There are degenerative changes of the hip joints and lum bar spine. Chest tube is present at the inferior left hemithorax. CONCLUSION: Distention of the colon in a pattern suggestive of ileus. Olegario Yusuf MD on June 06, 2016 at 6:21 Board Certified Radiologist. This report was verified electronically.
[2016-06-06] MEDS: METOCLOPRAMIDE HCL 10 MG/2 ML VIAL IV PUSH SCH ×3 (07:06→20:12)
[2016-06-06 08:04] LABS: BACTERIA, URINE OCC /hpf; BLOOD, URINE MOD (NEG); GLUCOSE,URINE NEG (NEG); KETONE, URINE NEG (NEG); MUCUS URINE FEW /lpf (OCC); NITRITE,URINE NEG (NEG); PH, URINE 5.5 (5.0-8.5); URINE COLOR YELLOW (YELLW/STRAW)
[2016-06-06 08:05] LABS: COMMENT (UR) CATH-CULTURE IND; CULTURE IF INDICATED CATH CULTURE IND
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
[2016-06-06] MEDS ORDERED: POLYETHYLENE GLYCOL 17 GM PKG PO SCH (09:00)
[2016-06-06] MEDS: ARTIFICIAL TEARS OPTH SOLN 15 ML BTL EACH EYE SCH ×3 (09:00→18:00)
--- NOTE | 2016-06-06 09:21 | RADRPT ---
EXAM DATE/TIME: 06/06/2016 07:54 [facility] COMPARISON: No previous studies available for comparison. INDICATIONS : Bilateral leg edema. MEDICAL HISTORY : Chronic back pain. Afib. Anticoagulant therapy, Coumadin. Stage III renal di sease. Atrophic kidney. Renal calculi. SURGICAL HISTORY : Scar noted to right upper quadrant. ENCOUNTER: Initial ACUITY: 1 day PAIN SCORE: Non-responsive LOCATION: Bilateral leg. TECHNIQUE: Venous ultrasound of the left and right leg was performed from the inguinal ligament t o the proximal calf. Real-time, color Doppler and spectral tracing, compression and augmentation ashley hniques were used. FINDINGS: RIGHT LEG: There is normal compressibility of the deep venous system from the inguinal region to the proximal calf. No echogenic clot is seen in the lumen of the common femoral, femoral, popliteal, and posterior tibial veins. There is a normal response of the venous system to proximal and distal augmentation and respiration. LEFT LEG: There is normal compressibility of the deep venous system from the inguinal region to t he proximal calf. No echogenic clot is seen in the lumen of the common femoral, femoral, popliteal, and posterior tibial veins. There is a normal response of the venous system to proximal and distal a ugmentation and respiration. CONCLUSION: Negative for deep venous thrombosis. Asif Blunt MD FACR on June 06, 2016 at 9:19 Board Certified Radiologist. This report was verified electronically.
--- NOTE | 2016-06-06 09:23 | RADRPT ---
EXAM DATE/TIME: 06/06/2016 07:38 [facility] COMPARISON: CT ABDOMEN & PELVIS W CONTRAST, June 02, 2016, 14:50. INDICATIONS : Increased BUN/creatinine. MEDICAL HISTORY : Chronic back pain. A-fib. Anticoagulant therapy, Coumadin. Stage III duran l disease. Atrophic kidney. Renal calculi. SURGICAL HISTORY : Scar noted to right upper quadrant. ENCOUNTER: Initial ACUITY: 1 day PAIN SCORE: Nonresponsive. LOCATION: Bilateral flank MEASUREMENTS: RIGHT KIDNEY: 8.5 x 3.6 x 3.7 cm LEFT KIDNEY: 12.1 x 5.3 x 7.1 cm FINDINGS: Examination is severely limited by the patient's body habitus. RIGHT KIDNEY: Small measuring 8.5 cm with hydronephrosis. There is an echogenic stone in the low er pole of the right kidney. LEFT KIDNEY: Measures 12.1 cm and is unremarkable. There is no evidence for mass or hydronephros is. BLADDER: Within normal limits given the degree of distension. CONCLUSION: 1. Small atrophic right kidney with renal stone. 2. Normal sized left kidney without hydronephrosis. Asfi Blunt MD FACR on June 06, 2016 at 9:16 Board Certified Radiologist. This report was verified electronically.
[2016-06-06] MEDS: DOCUSATE SODIUM 100 MG CAP PO SCH ×2 (09:51→20:12)
[2016-06-06] MEDS: FAMOTIDINE 20 MG/2 ML VIAL IV PUSH SCH (09:51)
[2016-06-06] MEDS: levETIRAcetam INJ 500 MG in SODIUM CHLORIDE 0.9% INJ 100 ML IV SCH ×2 (09:52→20:13)
[2016-06-06] MEDS: SENNOSIDES SYRUP 8.8 MG/5 ML CUP PEG SCH ×2 (09:52→20:12)
[2016-06-06] MEDS: ERYTHROMYCIN INJ 250 MG in SODIUM CHLORIDE 0.9% INJ 100 ML IV SCH ×3 (09:52→20:45)
[2016-06-06] MEDS: BACITRACIN TOP OINT 15 GM TUBE TOPICAL SCH ×3 (10:33→20:14)
[2016-06-06] MEDS: CHLORHEXIDINE 0.12% (ORAL KIT) 15 ML CUP MT SCH ×2 (10:33→20:11)
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
--- NOTE | 2016-06-06 12:58 | RADRPT ---
EXAM DATE/TIME: 06/06/2016 11:46 [facility] COMPARISON: No previous studies available for comparison. INDICATIONS : Altered mental status. Unresponsive. MEDICAL HISTORY : Renal insufficiency, chronic. Hypertension. SURGICAL HISTORY : Cardiac cath. ENCOUNTER: Initial ACUITY: 1 week PAIN SCORE: 0/10 LOCATION: neck Percent stenosis is calculated using the diameter of the stenotic region over the diameter of the nor mal distal internal carotid artery. TECHNIQUE: 3D time of flight MRA of the extracranial circulation was performed using a neurovascular coil. Post processing was performed including rotating subvolume maximum intensity projections of each carotid artery, rotating full-volume maximum intensity projections of both carotid arteries, sagittal and cor onal sliding thin-slab reformations of each carotid artery, and left oblique sliding thin slab reform ation through the aortic arch to include the origin of the arch branch vessels. FINDINGS: AORTIC ARCH: There is a three vessel origin of the great vessels from the aorta. No evidence of ostial narrowing. RIGHT CAROTID: The common carotid artery is intact. The carotid bulb has a normal configuration without ulceration or narrowing. The internal carotid artery lumen is smooth without stenosis. The external carotid ar anisha is intact. LEFT CAROTID: The common carotid artery is intact. The carotid bulb has a normal configuration without ulceration or narrowing. The internal carotid artery lumen is smooth without stenosis. The external carotid ar anisha is intact. VERTEBRALS: The vertebral arteries have a symmetric diameter. No stenotic lesions are seen. CONCLUSION: Negative for hemodynamically significant stenosis. Asif Blunt MD FACR on June 06, 2016 at 12:56 Board Certified Radiologist. This report was verified electronically.
[2016-06-06] MEDS: BENEPROTEIN POWDER 1 PACK G-TUBE SCH ×3 (13:00→18:00)
--- NOTE | 2016-06-06 13:05 | RADRPT ---
EXAM DATE/TIME: 06/06/2016 11:46 [facility] COMPARISON: No previous studies available for comparison. INDICATIONS : Altered mental status. Unresponsive. MEDICAL HISTORY : Hypertension. Renal insufficiency, chronic. SURGICAL HISTORY : Cardiac cath. ENCOUNTER: Initial ACUITY: 1 day PAIN SCORE: 0/10 LOCATION: Cranial Please note a normal MRA of the brain does not entirely exclude the possibility of a small aneurysm, nor the possibility of distal intracranial vessel disease. TECHNIQUE: 3D time of flight MRA was performed. Source images, multiplanar STS MIP, and 3D volum e MIP reconstructions were reviewed. FINDINGS: Moderate atherosclerotic intracranial vascular disease is evident. There is no evidence for major br anch vessel occlusion or aneurysm. CONCLUSION: Moderate intracranial atherosclerotic vascular disease. Asif Blunt MD FACR on June 06, 2016 at 12:56 Board Certified Radiologist. This report was verified electronically.
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
[2016-06-06] MEDS: SODIUM CHLORIDE 0.9% FLUSH 10 ML FLUSH IVF SCH (13:27)
[2016-06-06] MEDS: POLYETHYLENE GLYCOL 17 GM PKG PO SCH ×2 (13:27→20:13)
[2016-06-06] MEDS: SODIUM CHLORIDE 0.9% FLUSH 10 ML FLUSH IV FLUSH SCH ×2 (13:28→20:13)
[2016-06-06] MEDS ORDERED: PROPRANOLOL HCL 20 MG TAB PO SCH (14:00)
[2016-06-06] MEDS: PROPRANOLOL HCL 10 MG TAB PO SCH ×2 (16:01→21:48)
[2016-06-06 17:25] LABS: BICARBONATE 22.5 MEQ/L (21.0-32.0); POTASSIUM 4.4 MEQ/L (3.5-5.1)
[2016-06-06] MEDS ORDERED: SODIUM CHLOR 0.45% 1000 ML INJ 1,000 ML IV ONE (17:45)
[2016-06-06] MEDS: MINERAL OIL LIQUID 30 ML CUP PO SCH (20:12)
--- NOTE | 2016-06-06 21:05 | EKG ---
Date Performed: 06/05/2016 Time Performed: 22:00:10 PTAGE: 65 years EKG: Atrial fibrillation with rapid ventricular response. Extensive ST-T changes are nonspecific Abnormal ECG NO PREVIOUS TRACING DOCTOR: Jesus Choudhury Interpretating Date/Time 06/06/2016 21:03:19
[2016-06-07] VITALS (22 sets, daily range): BP systolic 94–116; BP diastolic 54–56; PULSE 72–107; RESP 13–25; TEMP 97.2–99; O2SAT 90–99
[2016-06-07] MEDS: DILTIAZEM HCL 30 MG TAB PO SCH ×5 (00:34→23:41)
[2016-06-07] MEDS: POTASSIUM PHOSPHATE/SODIUM PHOSPHATE 250 MG TAB PO SCH (00:35)
[2016-06-07] MEDS: LACTULOSE SYRUP 20 GM/30 ML CUP PO SCH ×5 (00:35→23:41)
[2016-06-07] MEDS: ERYTHROMYCIN INJ 250 MG in SODIUM CHLORIDE 0.9% INJ 100 ML IV SCH ×4 (01:37→20:13)
[2016-06-07] MEDS: INSULIN NovoLIN REGULAR SUPPLEMENTAL SCALE SQ SCH ×7 (04:00→23:42)
[2016-06-07] MEDS: CHLORHEXIDINE GLUCONATE 2 % 1 PACK (2 CLOTHS) TOP SCH (04:26)
[2016-06-07 04:34] LABS: AUTOMATED NEUTROPHIL # 7.7 TH/MM3 (1.8-7.7); BASOPHIL % 0.3 % (0.0-2.0); HEMATOCRIT 25.2 % (39.0-51.0); LYMPH % 4.3 % (9.0-44.0); LYMPHOCYTE # 0.4 TH/MM3 (1.0-4.8); MEAN CELL VOLUME 90.7 FL (80.0-100.0); MEAN CORPUSCULAR HEMOGLOBIN 29.9 PG (27.0-34.0); MONO % 10.2 % (0.0-8.0); NEUT % 85.2 % (16.0-70.0); PLATELET COUNT 129 TH/MM3 (150-450); RED BLOOD COUNT 2.78 MIL/MM3 (4.50-5.90); RED CELL DISTRIBUTION WIDTH 15.5 % (11.6-17.2); WHITE BLOOD COUNT 9.1 TH/MM3 (4.0-11.0)
[2016-06-07 04:38] LABS: HEMO FLAGS AUTO DIFF
[2016-06-07 05:09] LABS: ALKALINE PHOSPHATASE 67 U/L (45-117); ALT (GPT) 15 U/L (12-78); ANION GAP 10 MEQ/L (5-15); AST (GOT) 25 U/L (15-37); BICARBONATE 23.3 MEQ/L (21.0-32.0); BLOOD UREA NITROGEN 38 MG/DL (7-18); CHLORIDE 120 MEQ/L (98-107); GLOMERULAR FILTRATION RATE 21 ML/MIN (>89); HDL CHOLESTEROL 12.6 MG/DL (40.0-60.0); LDL CHOLESTEROL 42 MG/DL (0-99); MAGNESIUM 2.4 MG/DL (1.5-2.5); POTASSIUM 4.6 MEQ/L (3.5-5.1); SODIUM (NA) 153 MEQ/L (136-145); TOTAL BILIRUBIN ADULT 0.6 MG/DL (0.2-1.0)
[2016-06-07] MEDS: RESP: ALBUTEROL 2.5 MG/IPRATROPIUM 0.5 MG NEB (SCH) INH ×4 (05:10→20:29)
[2016-06-07 05:32] LABS: BLOOD GAS BASE EXCESS -7.5 mmol/L (-2-2); BLOOD GAS CARBOXYHEMOGLOBIN 1.3 % (0-4); BLOOD GAS HCO3 19 mmol/L (22-26); BLOOD GAS METHEMOGLOBIN 0.9 % (0-2); BLOOD GAS O2 HGB SATURATION 96 % (90-100); BLOOD GAS OXYGEN CONTENT 11.5 Vol % (12.0-20.0); BLOOD GAS PCO2 52 mmHg (38-42); BLOOD GAS PO2 115 mmHg (61-120); BLOOD GAS TOTAL HGB 8.4 G/DL (12.0-16.0); CRITICAL VALUE YES; OXYGEN DEVICE VENTILATOR; TEMP CORR TO 98.6
[2016-06-07 05:33] LABS: DRAW SITE ART LINE; FIO2 50 %; STAT NO; VENT SETTINGS PRVC/AC
[2016-06-07] MEDS: METOCLOPRAMIDE HCL 10 MG/2 ML VIAL IV PUSH SCH ×3 (05:33→20:15)
[2016-06-07] MEDS: FREE WATER G-TUBE SCH ×7 (05:33→23:41)
[2016-06-07] MEDS: PROPRANOLOL HCL 10 MG TAB PO SCH ×3 (05:33→20:14)
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
[2016-06-07] MEDS: SODIUM CHLOR 0.45% 1000 ML INJ 1,000 ML IV SCH ×2 (05:55→18:15)
[2016-06-07] MEDS ORDERED: SODIUM CHLOR 0.9% 1000 ML INJ 1,000 ML IV ONE (06:00)
--- NOTE | 2016-06-07 06:13 | RADRPT ---
EXAM DATE/TIME: 06/07/2016 04:29 [facility] COMPARISON: CHEST SINGLE AP, June 05, 2016, 9:20. INDICATIONS : Shortness of breath, possible pulmonary disease. MEDICAL HISTORY : Hypertension. Renal insufficiency, chronic. SURGICAL HISTORY : None. ENCOUNTER: Subsequent ACUITY: 1 week PAIN SCORE: Non-responsive. LOCATION: Bilateral chest FINDINGS: A single portable frontal view of the chest shows a left-sided thoracostomy tube, right subclavian ce ntral line, nasogastric tube, and endotracheal tube. Tip of the endotracheal tube is 4 cm proximal to the stuart. Bibasilar consolidation is more pronounced from the prior. No effusions. Heart is normal in size. Left-sided rib fractures and left clavicular fracture again seen. CONCLUSION: Bibasilar consolidation either related to atelectasis or perhaps developing infiltrates. This is more pronounced. No pneumothorax. Jason Holden Jr., MD on June 07, 2016 at 6:10 Board Certified Radiologist. This report was verified electronically.
--- NOTE | 2016-06-07 07:05 | RADRPT ---
EXAM DATE/TIME: 06/07/2016 06:44 [facility] COMPARISON: ABDOMEN KUB ONLY, June 06, 2016, 5:57. INDICATIONS : Abdominal distention, evaluate ileus MEDICAL HISTORY : Renal failure, chronic. ICH SURGICAL HISTORY : unobtainable ENCOUNTER: Subsequent ACUITY: 1 week PAIN SCORE: Non-responsive. LOCATION: Bilateral abdomen FINDINGS: There continues to be some gaseous distention of the colon without significant change compared to the prior exam. No definite dilatation of the small bowel is seen. No new or significant changes. CONCLUSION: No significant change in the gaseous distention of the colon compared to the prior study. Rafael Broussard MD on June 07, 2016 at 7:03 Board Certified Radiologist. This report was verified electronically.
[2016-06-07 07:08] LABS: BANDS 42 % (0-6); DOHLE BODIES PRESENT (NONE SEEN); METAMYELOCYTES 1 % (0-1); NEUTROPHIL # MANUAL DIFF 8.2 TH/MM3 (1.8-7.7); POLYS (SEG NEUTROPHILS) 47 % (16-70); WBC DIFF SAMPLE 100
[2016-06-07 07:09] LABS: KERATOCYTES OCC (NORMAL); PLATELET ESTIMATE SMEAR LOW (NORMAL); PLATELET MORPHOLOGY NORMAL (NORMAL); SCAN/DIFF FINAL DIFF MANUAL
[2016-06-07] MEDS: CHLORHEXIDINE 0.12% (ORAL KIT) 15 ML CUP MT SCH ×2 (08:00→20:13)
[2016-06-07] MEDS: POLYETHYLENE GLYCOL 17 GM PKG PO SCH ×2 (08:05→20:14)
[2016-06-07] MEDS: FAMOTIDINE 20 MG/2 ML VIAL IV PUSH SCH (08:05)
[2016-06-07] MEDS: ARTIFICIAL TEARS OPTH SOLN 15 ML BTL EACH EYE SCH ×3 (08:05→18:15)
[2016-06-07] MEDS: SENNOSIDES SYRUP 8.8 MG/5 ML CUP PEG SCH ×2 (08:05→20:14)
[2016-06-07] MEDS: levETIRAcetam INJ 500 MG in SODIUM CHLORIDE 0.9% INJ 100 ML IV SCH ×2 (08:05→20:14)
[2016-06-07] MEDS: DOCUSATE SODIUM 100 MG CAP PO SCH ×2 (08:06→20:14)
[2016-06-07] MEDS: BACITRACIN TOP OINT 15 GM TUBE TOPICAL SCH ×3 (08:06→20:14)
[2016-06-07] MEDS: SODIUM CHLORIDE 0.9% FLUSH 10 ML FLUSH IV FLUSH SCH ×2 (08:06→20:14)
[2016-06-07] MEDS: SODIUM CHLORIDE 0.9% FLUSH 10 ML FLUSH IVF SCH (08:06)
[2016-06-07] MEDS: BENEPROTEIN POWDER 1 PACK G-TUBE SCH ×3 (08:06→18:00)
--- NOTE | 2016-06-07 09:02 | HHI.NSPN ---
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 X-Ray 06/07/16 0000 Signed Impressions: Service Date/Time: Tuesday, June 07, 2016 06:44 - CONCLUSION: No significant change in the gaseous distention of the colon compared to the prior study. Rafael Broussard MD Renal Ultrasound 06/06/16 0000 Signed Impressions: Service Date/Time: Monday, June 06, 2016 07:38 - CONCLUSION: 1. Small atrophic right kidney with renal stone. 2. Normal sized left kidney without hydronephrosis. Asif Blunt MD FACR Neck Magnetic Resonance Angiography 06/06/16 0000 Signed Impressions: Service Date/Time: Monday, June 06, 2016 11:46 - CONCLUSION: Negative for hemodynamically significant stenosis. Asif Blunt MD FACR Lower Extremity Ultrasound 06/06/16 0000 Signed Impressions: Service Date/Time: Monday, June 06, 2016 07:54 - CONCLUSION: Negative for deep venous thrombosis. Asif Blunt MD FACR Brain MRI 06/05/162020 Signed Impressions: Service Date/Time: Sunday, June 05, 2016 21:02 - CONCLUSION: 1. MRI demonstrates evidence of an acute nonhemorrhagic infarction in the right MCA [employer] watershed zone. 2. Bilateral frontal left parietal and bilateral occipital parenchymal hemorrhages. As would be expected, many more images are discernible on the susceptibility weighted images and on prior CTs. Jason Hinojosa MD Head CT 06/03/16 0800 Signed Impressions: Service Date/Time: May 10:59 - CONCLUSION: 1. The only interval change has been the development of small volume subarachnoid hemorrhage bilaterally. The remaining sites of hemorrhage are stable. 2. No signs of herniation or midline shift. Jason Holden Jr., MD Thoracic Spine CT 06/02/16 1429 Signed Impressions: Service Date/Time: Thursday, June 02, 2016 14:50 - CONCLUSION: 1. Acute fractures involving the left scapula and multiple left ribs with associated subcutaneous air over the left hemithorax. Please see the CT of the thorax dictated separately. 2. Atrophy of the right kidney. 3. No thoracic spine fracture observed. 4. Diffuse disc space narrowing with anterior osteophytes. Central canal is patent throughout. Jason Holden Jr., MD Pelvis X-Ray 06/02/161428 Signed Impressions: Service Date/Time: Thursday, June 02, 2016 14:20 - CONCLUSION: Limited but unremarkable study. Jason Holden Jr., MD Maxillofacial CT 06/02/161428 Signed Impressions: Service Date/Time: Thursday, June 02, 2016 14:49 - CONCLUSION: 1. No fracture. 2. Air-fluid levels in the sphenoid sinuses with soft tissue density in the nasal passages probably related to recent intubation. 3. Benign bony protuberance off the hard palate. Dameon Conley MD Lumbar Spine CT 06/02/161428 Signed Impressions: Service Date/Time: Thursday, June 02, 2016 14:50 - CONCLUSION: 1. No acute fracture of the lumbar spine. 2. Degenerative changes as detailed above. 3. Atrophy of the right kidney. Jason Holden Jr., MD Chest CT 06/02/161428 Signed Impressions: Service Date/Time: Thursday, June 02, 2016 14:54 - CONCLUSION: 1. Small left pneumothorax. 2. Extensively comminuted fracture through the left scapula. Simple fracture of the left clavicle. 3. Multiple posterior and lateral left rib fractures. Fractures include a comminuted injury at the costovertebral junction of the left second rib.. Dameon Conley MD Cervical Spine CT 06/02/161428 Signed Impressions: Service Date/Time: Thursday, June 02, 2016 14:48 - CONCLUSION: 1. Comminuted and minimally displaced fracture through the posterior aspect of the left 2nd rib near the costovertebral junction. 2. Nondisplaced linear fracture through the superior articulating facet rightward at C6. 3. Otherwise, chronic changes with some uncovertebral ridging most prominent from C3-C4 through C5- C6. No vertebral body fracture is identified. Dameon Conley MD Abdomen/Pelvis CT 06/02/161428 Signed Impressions: Service Date/Time: Thursday, June 02, 2016 14:50 - CONCLUSION: 1. Multiple left posterior rib fractures with a small to moderate-sized left-sided pneumothorax. 2. No acute intra-abdominal or pelvic visceral trauma. 3. Chronic atrophic changes of the right kidney with a 1.5 cm chronic stone in the inferior pole collecting system seen. Cortical atrophic changes in the otherwise normal size and dominant left kidney. 4. Subcutaneous hematoma over the left buttock region. 5. Air within the tissues about the neurovascular bundle of the right inguinal region and in the muscles of the right sided adductors. This may represent regional penetrating trauma. Dameon Conley MD Upper Extremity CT 06/02/16 0000 Signed Impressions: Service Date/Time: Thursday, June 02, 2016 21:55 - CONCLUSION: Acute comminuted displaced fracture involving the left scapula body and acromium. Acute fractures involving multiple left ribs and left clavicle. Degenerative changes involving the left acromioclavicular joint. Mendez Williamson MD Knee X-Ray 06/02/16 0000 Signed Impressions: Service Date/Time: Thursday, June 02, 2016 15:30 - CONCLUSION: No acute disease. Jason Holden Jr., MD (Mark Hernández MD) Plan Plan Remarks cont neuro checks, f/u examination cont critical care management (Yessy Rodriguez) Attending Statement Continue neuro checks. I reviewed his MRI and MRA of the brain. There is an infarction on the right MCA/[employer] watershed distribution Continue sedation vacation Respiratory. wean mechanical ventilation as tolerated, continue pulmonary toilette, nasotracheal suction, and breathing treatments with nebulizers. Daily PT and OT Left pneumothorax with ribs 2 through 8 fracture. Status post chest tube. Chest tube to seal. follow-up chest x-rays from today was reviewed Left scapular fracture defer to orthopedic Nutrition. Continue tube feedings Renal. Continue to monitor closely urine output, BUN and creatinine Endocrine. Continue to Monitor serial Acu checks and SSI for tight control ID continue to monitor for signs of infection Continue Protonix for stress ulcer prophylaxis Continue Terrell hose and SCD's for DVT prophylaxis. Lovenox (Mark Hernández MD) Yessy Rodriguez Jun 07, 2016 09:02 Mark Hernández MD Jun 07, 2016 10:51
[2016-06-07 10:36] LABS: BLOOD GAS CARBOXYHEMOGLOBIN 1.5 % (0-4); BLOOD GAS HCO3 18 mmol/L (22-26); BLOOD GAS METHEMOGLOBIN 0.8 % (0-2); BLOOD GAS O2 HGB SATURATION 90 % (90-100); BLOOD GAS OXYGEN CONTENT 11.3 Vol % (12.0-20.0); BLOOD GAS PCO2 40 mmHg (38-42); BLOOD GAS PO2 59 mmHg (61-120); BLOOD GAS TOTAL HGB 8.9 G/DL (12.0-16.0); TEMP CORR TO 98.6
[2016-06-07 10:37] LABS: CRITICAL VALUE YES; OXYGEN DEVICE VENTILATOR
[2016-06-07 10:38] LABS: DRAW SITE ART LINE; FIO2 70 %; STAT NO; VENT SETTINGS PRVC/AC
--- NOTE | 2016-06-07 10:40 | MG ---
cc: LUIS FERGUSON M.D. Lab No: [id number] Date: 06/06/2016 : 1950 Sex: M Hyperventilation not performed. DESCRIPTION Diffuse 5 Hz slowing is seen. No hemisphere asymmetry is noted. No epileptiform or seizure activity is seen. Photic stimulation is performed without significant posterior driving. IMPRESSION Diffuse theta slowing consistent with a moderate diffuse encephalopathy but no focal abnormality was noted, no seizure activity was seen. MD MARCELLE FinleyM/BT /9:42 PM /10:36 AM
[2016-06-07] MEDS ORDERED: CISATRACURIUM BESYLATE 20 MG/10 ML VIAL IVP ONE (10:45)
[2016-06-07] MEDS: NOREPINEPHRINE INJ 4 MG in SODIUM CHLOR 0.9% 250 ML INJ 246 ML IV SCH (11:02)
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
[2016-06-07] MEDS ORDERED: TERBUTALINE INJ 1 MG/ML AMP SQ PRN ×2 (11:30→12:00)
[2016-06-07] MEDS ORDERED: PHENYLEPHRINE INJ 80 MG in DEXTROSE 5% IN WATE 500 ML INJ 492 ML IV SCH ×2 (11:30)
[2016-06-07] MEDS ORDERED: NOREPINEPHRINE-DEXTROSE DRIP 250 ML IV SCH (12:00)
[2016-06-07] MEDS ORDERED: NOREPINEPHRINE INJ 4 MG in SODIUM CHLOR 0.9% 250 ML INJ 246 ML IV SCH (12:00)
[2016-06-07] MEDS ORDERED: Vancomycin Consult Pharmacy 1 EA OTHER SCH (12:15)
--- NOTE | 2016-06-07 12:15 | PD.PROCEDR ---
Procedure Note Procedure DATE: 06/07/2016 Bronchoscopy with bronchial lavage: Diagnostic and therapeutic INDICATION: Acute hypoxemic respiratory failure CONSENT Informed consent for procedure was not obtaining is considered emergently in a life-threatening in a patient with acute hypoxia DESCRIPTION OF THE PROCEDURE The patient was placed in supine position. The patient was on PRVC ventilation 18/600/1.2/100%. I entered the #8.0 ET tube with fiber bronchoscopy. This is advanced to the stuart. Surveyed the left side first. Thrush was advanced into the left lower lobe and copious amounts of thick creamy secretions were gently suctioned several times using aliquots of sterile saline. Left lingula was investigated with similar findings thick white secretions which were suctioned with copious amounts sterile saline. Mucosa was normal with 1 small area of suction trauma that was not actively bleeding in the lingula. The bronchoscope was removed and the right side was investigated. Right upper lobe within normal limits. Bronchus intermedius large right mucosal area was suctioned using 30 cc sterile saline to Lukens trap. This was sent for samples. The right middle lobe and lower lobe were suctioned with copious amounts of sterile saline until second/third segments were cleared of any mucus plugging. No edema in the airway. The bronchoscope was when the procedure was stopped. Follow chest x-ray pending ESTIMATED BLOOD LOSS: Minimal COMPLICATIONS: No apparent complications. STAT chest x-ray pending Sha Tapia MD Jun 07, 2016 12:15
--- NOTE | 2016-06-07 13:04 | RADRPT ---
EXAM DATE/TIME: 06/07/2016 12:33 [facility] COMPARISON: CHEST SINGLE AP, June 07, 2016, 4:29. INDICATIONS : Post bronchoscopy. MEDICAL HISTORY : Hypertension. Renal insufficiency, chronic. SURGICAL HISTORY : None. ENCOUNTER: Subsequent ACUITY: 4 - 6 days PAIN SCORE: Non-responsive. LOCATION: Bilateral chest FINDINGS: Endotracheal tube is present with tip 6-7 cm above the stuart. Nasogastric tube descends in the stoma ch. Left thoracostomy tube is present in stable position. Right subclavian central line is stable. Th ere has been improvement in aeration with some clearance of basilar infiltrates. Accounting for rotat ion, the cardiac contours are grossly stable. Left chest and shoulder skeletal injuries are again not ed. CONCLUSION: Improving aeration. Olegario Mclean MD on June 07, 2016 at 13:01 Board Certified Radiologist. This report was verified electronically.
[2016-06-07] MEDS: PHENYLEPHRINE INJ 80 MG in SODIUM CHLORID 0.9% 500 ML INJ 492 ML IV SCH ×2 (13:09→22:46)
[2016-06-07 13:41] LABS: LAVAGE TOTAL WBC COUNT 119.2 MILLION (4.7-7.1)
[2016-06-07 13:42] LABS: BRONCHOALVEOLAR LAVAGE RBC 300 /MM3; BRONCHOALVEOLAR LAVAGE WBC 5675 /MM3; BRONCHOAVEOLAR HISTIOCYTES 7 %; BRONCHOAVEOLAR LYMPHOCYTES 0 %; BRONCHOAVEOLAR NEUTROPHILS 93 %
[2016-06-07] MEDS ORDERED: VANCOMYCIN INJ 1,750 MG in SODIUM CHLORID 0.9% 500 ML INJ 500 ML IV ONE (14:00)
--- NOTE | 2016-06-07 14:34 | RADRPT ---
EXAM DATE/TIME: 06/07/2016 13:58 [facility] COMPARISON: CT BRAIN W/O CONTRAST, June 03, 2016, 10:59. INDICATIONS : Evaluate abdomen distention, bandemia and OG tube placement ORAL CONTRAST: No oral contrast ingested. RADIATION DOSE: 16.93 CTDIvol (mGy) MEDICAL HISTORY : Cardiovascular disease. Renal disease, end stage. SURGICAL HISTORY : None. ENCOUNTER: Initial ACUITY: 4 - 6 days PAIN SCALE: Non-responsive LOCATION: Bilateral abdomen TECHNIQUE: Volumetric scanning of the abdomen and pelvis was performed. Using automated exposure control and ad justment of the mA and/or kV according to patient size, radiation dose was kept as low as reasonably achievable to obtain optimal diagnostic quality images. FINDINGS: The portions of the lung base visualized demonstrate size worrisome consolidation and infiltrate in b oth lower lobes and the right middle lobe. There is an oral gastric tube present. The tip of the tube is at the gastroesophageal junction. The appearance of the liver, spleen, pancreas, adrenal glands and left kidney is within normal limits by noncontrast CT. The right kidney is atrophic. There is a 1.5 x 1.6 cm stone within the collecting system. The abdominal aorta is normal in caliber. There is no retroperitoneal adenopathy. No free intraperitoneal air or free intra-peritoneal fluid is seen. There is gaseous distention of th e colon. There is no free fluid within the pelvis. No iliac or inguinal adenopathy is seen. Note is made of an arterial line within the left femoral artery. As a Mccormick catheter within the bladder. There are degenerative changes throughout the spine. There are multiple posterior rib fractures on th e left. There is a left basilar chest tube in place. CONCLUSION: 1. There are areas of consolidation in both lung bases. There is patchy infiltrate seen in the right middle lobe. 2. Gaseous distention of the colon. 3. Atrophy of the right kidney. 4. The oral gastric tube is present with the tip at the gastroesophageal junction. 5. Arterial line in place in the left groin. 6. Multiple left-sided rib fractures. Jean Paul Blunt MD on June 07, 2016 at 14:28 Board Certified Radiologist. This report was verified electronically.
[2016-06-07] MEDS: PIPERACIL-TAZO 3.375 GM PREMIX 50 ML IV SCH ×2 (14:50→20:13)
[2016-06-07] MEDS: EPOPROSTENOL NEB SOLUTION 50 NG/KG/MIN 100 ML NEB SCH ×4 (15:07→20:15)
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
[2016-06-07 16:16] LABS: BLOOD GAS BASE EXCESS -8.8 mmol/L (-2-2); BLOOD GAS CARBOXYHEMOGLOBIN 1.2 % (0-4); BLOOD GAS HCO3 17 mmol/L (22-26); BLOOD GAS METHEMOGLOBIN 1.1 % (0-2); BLOOD GAS O2 HGB SATURATION 94 % (90-100); BLOOD GAS OXYGEN CONTENT 14.7 Vol % (12.0-20.0); BLOOD GAS PCO2 43 mmHg (38-42); BLOOD GAS PO2 85 mmHg (61-120); BLOOD GAS TOTAL HGB 11.1 G/DL (12.0-16.0); TEMP CORR TO 98.6
[2016-06-07 16:17] LABS: CRITICAL VALUE YES; DRAW SITE ART LINE; FIO2 100 %; OXYGEN DEVICE VENTILATOR; STAT NO; VENT SETTINGS PRVC/AC
[2016-06-07] MEDS: fentaNYL DRIP 250 ML IV SCH (16:30)
[2016-06-07] MEDS ORDERED: SODIUM BICARBONATE 8.4% INJ 50 MEQ/50 ML SYR IV PUSH ONE (19:00)
[2016-06-07 19:23] LABS: BLOOD GAS BASE EXCESS -9.4 mmol/L (-2-2); BLOOD GAS HCO3 18 mmol/L (22-26); BLOOD GAS O2 HGB SATURATION 95 % (90-100); BLOOD GAS OXYGEN CONTENT 13.1 Vol % (12.0-20.0); BLOOD GAS PCO2 53 mmHg (38-42); BLOOD GAS PO2 111 mmHg (61-120); BLOOD GAS TOTAL HGB 9.7 G/DL (12.0-16.0); CRITICAL VALUE YES; OXYGEN DEVICE VENTILATOR; TEMP CORR TO 98.6
[2016-06-07 19:24] LABS: DRAW SITE ART LINE; FIO2 100 %; STAT YES; VENT SETTINGS PRVC/AC
[2016-06-07] MEDS ORDERED: SODIUM BICARBONATE 8.4% INJ 50 ML ONE (19:37)
[2016-06-07 20:05] LABS: BICARBONATE 19.2 MEQ/L (21.0-32.0); POTASSIUM 4.2 MEQ/L (3.5-5.1)
[2016-06-07] MEDS: MINERAL OIL LIQUID 30 ML CUP PO SCH (20:14)
[2016-06-07 20:20] LABS: CALCIUM-PROTEIN CORRECTED 8.8 MG/DL (8.5-10.1)
[2016-06-07] MEDS: NOREPINEPHRINE INJ 16 MG in SODIUM CHLOR 0.9% 250 ML INJ 234 ML IV SCH (22:46)
[2016-06-07 23:42] LABS: BLOOD GAS BASE EXCESS -9.6 mmol/L (-2-2); BLOOD GAS CARBOXYHEMOGLOBIN 1.1 % (0-4); BLOOD GAS HCO3 20 mmol/L (22-26); BLOOD GAS METHEMOGLOBIN 1.3 % (0-2); BLOOD GAS O2 HGB SATURATION 93 % (90-100); BLOOD GAS OXYGEN CONTENT 13.9 Vol % (12.0-20.0); BLOOD GAS PCO2 77 mmHg (38-42); BLOOD GAS PO2 100 mmHg (61-120); BLOOD GAS TOTAL HGB 10.5 G/DL (12.0-16.0); TEMP CORR TO 98.6
[2016-06-07 23:43] LABS: OXYGEN DEVICE VENTILATOR
[2016-06-07 23:44] LABS: DRAW SITE ART LINE; FIO2 100 %; STAT NO; VENT SETTINGS BIPHASIC
[2016-06-08] VITALS (20 sets, daily range): BP systolic 99–123; BP diastolic 36–97; PULSE 74–108; RESP 12–32; TEMP 97.5–99; O2SAT 92–100
--- NOTE | 2016-06-08 00:54 | RADRPT ---
EXAM DATE/TIME: 06/08/2016 00:40 [facility] COMPARISON: CHEST SINGLE AP, June 07, 2016, 12:33. INDICATIONS : Respiratory distress. MEDICAL HISTORY : Hypertension. Renal insufficiency, chronic. SURGICAL HISTORY : None. ENCOUNTER: Subsequent ACUITY: 4 - 6 days PAIN SCORE: Non-responsive. LOCATION: Bilateral chest FINDINGS: 2 portable frontal views of the chest show near complete opacification of the left hemithorax with mi ld aeration of the apex. This is a new finding. A right upper lobe infiltrate is more pronounced. An endotracheal tube tip is seen approximately 4 cm proximal to the stuart. Nasogastric tube is coiled i n the fundus. Left thoracostomy tube observed. No pneumothorax. Multiple left rib fractures. Left cla vicular fracture. Left scapular fracture. Right subclavian central line. CONCLUSION: 1. Interval complete opacification of the left hemithorax with mild sparing of the apex. 2. Developing right upper lobe infiltrate. 3. Multiple fractures. Jason Holden Jr., MD on June 08, 2016 at 0:50 Board Certified Radiologist. This report was verified electronically.
--- NOTE | 2016-06-08 02:08 | PD.PROCEDR ---
Procedure Note Procedure Bronchoscopy The bronchoscope was advanced through the ETT into stuart, which was sharp. Then advanced into the left main stem and each segment, subsegement in the left upper lingula and lower lobe was visualized. There was mild tracheobronchitis with mild friability throughout. There was modest amounts of white secretion. There were no other findings including evidence of mass, anatomic distortions, or hemorrhage. The right upper lobe anatomy showed some segmental distortion with dilation and irregularities both at the apical region as well as in the subsegments of the anteroapical and posterior segments. No specific masses or other lesions were identified throughout the tracheobronchial tree on the right. There was mild tracheal bronchitis with friability. Upon coughing, there was punctate hemorrhage. The bronchoscope was then advanced through the bronchus intermedius and the right middle lobe and right lower lobe. These again had no other anatomic lesions identified. The bronchoscope was then wedged in the right middle lobe and bronchoalveolar samples were obtained. The bronchoscope was withdrawn and the area was suctioned clear. The bronchoscope was then advanced into the apical segment of the right upper lobe and the bronchioalveolar lavage again performed. Samples were taken and the bronchoscope was removed suctioned the area clear. The bronchoscope was then withdrawn. The patient tolerated the procedure well without evidence of desaturation or complications. Regis Campa MD Jun 08, 2016 02:08
[2016-06-08] MEDS: FREE WATER G-TUBE SCH ×5 (02:09→19:56)
[2016-06-08] MEDS: PIPERACIL-TAZO 3.375 GM PREMIX 50 ML IV SCH ×4 (02:09→19:56)
[2016-06-08] MEDS: ERYTHROMYCIN INJ 250 MG in SODIUM CHLORIDE 0.9% INJ 100 ML IV SCH (02:09)
[2016-06-08 02:24] LABS: BLOOD GAS BASE EXCESS -10.1 mmol/L (-2-2); BLOOD GAS HCO3 19 mmol/L (22-26); BLOOD GAS METHEMOGLOBIN 1.1 % (0-2); BLOOD GAS O2 HGB SATURATION 95 % (90-100); BLOOD GAS OXYGEN CONTENT 16.9 Vol % (12.0-20.0); BLOOD GAS PCO2 73 mmHg (38-42); BLOOD GAS PO2 118 mmHg (61-120); BLOOD GAS TOTAL HGB 12.5 G/DL (12.0-16.0); TEMP CORR TO 98.6
[2016-06-08 02:25] LABS: OXYGEN DEVICE VENTILATOR
[2016-06-08 02:26] LABS: DRAW SITE ART LINE; FIO2 100 %; VENT SETTINGS BIPHASIS
[2016-06-08 02:27] LABS: STAT YES
[2016-06-08 03:18] LABS: AUTOMATED NEUTROPHIL # 22.5 TH/MM3 (1.8-7.7); BASOPHIL % 0.2 % (0.0-2.0); HEMATOCRIT 26.3 % (39.0-51.0); HEMO FLAGS AUTO DIFF; LYMPH % 1.3 % (9.0-44.0); LYMPHOCYTE # 0.3 TH/MM3 (1.0-4.8); MEAN CELL VOLUME 90.9 FL (80.0-100.0); MEAN CORPUSCULAR HGB CONC 31.9 % (32.0-36.0); NEUT % 93.5 % (16.0-70.0); PLATELET COUNT 177 TH/MM3 (150-450); RED BLOOD COUNT 2.89 MIL/MM3 (4.50-5.90); RED CELL DISTRIBUTION WIDTH 15.6 % (11.6-17.2); WHITE BLOOD COUNT 24.1 TH/MM3 (4.0-11.0)
[2016-06-08 03:26] LABS: APTT (PATIENT) 36.1 SEC (24.3-30.1); INTERNATIONAL NORMALIZED RATIO 1.1 RATIO; PROTHROMBIN TIME - PATIENT 11.8 SEC (9.8-11.6)
[2016-06-08] MEDS: RESP: ALBUTEROL 2.5 MG/IPRATROPIUM 0.5 MG NEB (SCH) INH ×4 (03:36→20:43)
[2016-06-08] MEDS: CHLORHEXIDINE GLUCONATE 2 % 1 PACK (2 CLOTHS) TOP SCH (04:00)
[2016-06-08] MEDS: INSULIN NovoLIN REGULAR SUPPLEMENTAL SCALE SQ SCH ×5 (04:00→19:57)
[2016-06-08 04:09] LABS: BANDS 38 % (0-6); CORRECTED NUCLEATED RBC 2 /100 WBC (0-0); DOHLE BODIES PRESENT (NONE SEEN); METAMYELOCYTES 5 % (0-1); MYELOCYTES 1 % (0-0); NEUTROPHIL # MANUAL DIFF 23.4 TH/MM3 (1.8-7.7); PLATELET ESTIMATE SMEAR NORMAL (NORMAL); POLYS (SEG NEUTROPHILS) 53 % (16-70); SCAN/DIFF FINAL DIFF MANUAL; WBC DIFF SAMPLE 100
[2016-06-08 04:10] LABS: ACANTHOCYTES OCC (NORMAL); PLATELET MORPHOLOGY ENLARGED (NORMAL)
[2016-06-08 04:17] LABS: ALKALINE PHOSPHATASE 71 U/L (45-117); ALT (GPT) 15 U/L (12-78); ANION GAP 10 MEQ/L (5-15); AST (GOT) 25 U/L (15-37); BLOOD UREA NITROGEN 55 MG/DL (7-18); CHLORIDE 120 MEQ/L (98-107); GLOMERULAR FILTRATION RATE 15 ML/MIN (>89); MAGNESIUM 2.1 MG/DL (1.5-2.5); POTASSIUM 4.7 MEQ/L (3.5-5.1); SODIUM (NA) 151 MEQ/L (136-145); TOTAL BILIRUBIN ADULT 0.9 MG/DL (0.2-1.0)
--- NOTE | 2016-06-08 04:37 | RADRPT ---
EXAM DATE/TIME: 06/08/2016 02:45 [place] COMPARISON: CHEST SINGLE AP, June 08, 2016, 0:40. INDICATIONS : Post bronchoscopy. MEDICAL HISTORY : Hypertension. Renal insufficiency, chronic. SURGICAL HISTORY : None. ENCOUNTER: Subsequent ACUITY: 4 - 6 days PAIN SCORE: Non-responsive. LOCATION: Bilateral chest FINDINGS: 2 portable frontal views the chest reveal a break special left lung. Patchy bilateral pulmonary infil trates are unchanged. No effusions. Heart normal in size. Tip of the endotracheal tube 3 cm proximal to stuart. Nasogastric tube coiled in the fundus of the stomach. Right subclavian central line and le ft thoracostomy tube noted. No pneumothorax. Multiple left rib fractures, left scapular, and left cla vicular fracture. CONCLUSION: Reexpansion of the left lung. Bilateral pulmonary infiltrates persist. Jason Holden Jr., MD on June 08, 2016 at 4:32 Board Certified Radiologist. This report was verified electronically.
[2016-06-08] MEDS: EPOPROSTENOL NEB SOLUTION 50 NG/KG/MIN 100 ML NEB SCH ×6 (04:56→19:57)
[2016-06-08] MEDS: DILTIAZEM HCL 30 MG TAB PO SCH ×3 (04:57→17:05)
[2016-06-08] MEDS: SODIUM CHLOR 0.45% 1000 ML INJ 1,000 ML IV SCH ×4 (04:57→19:57)
[2016-06-08] MEDS: LACTULOSE SYRUP 20 GM/30 ML CUP PO SCH ×3 (04:58→17:05)
[2016-06-08] MEDS: PROPRANOLOL HCL 10 MG TAB PO SCH ×3 (04:58→21:56)
[2016-06-08] MEDS: METOCLOPRAMIDE HCL 10 MG/2 ML VIAL IV PUSH SCH ×3 (04:58→21:56)
[2016-06-08 05:08] LABS: BLOOD GAS BASE EXCESS -9.7 mmol/L (-2-2); BLOOD GAS CARBOXYHEMOGLOBIN 1.2 % (0-4); BLOOD GAS HCO3 18 mmol/L (22-26); BLOOD GAS METHEMOGLOBIN 1.3 % (0-2); BLOOD GAS O2 HGB SATURATION 97 % (90-100); BLOOD GAS OXYGEN CONTENT 11.9 Vol % (12.0-20.0); BLOOD GAS PCO2 55 mmHg (38-42); BLOOD GAS PO2 190 mmHg (61-120); BLOOD GAS TOTAL HGB 8.4 G/DL (12.0-16.0); TEMP CORR TO 98.6
[2016-06-08 05:09] LABS: CRITICAL VALUE YES; OXYGEN DEVICE VENTILATOR
[2016-06-08 05:10] LABS: DRAW SITE ART LINE; FIO2 100 %; STAT NO; VENT SETTINGS BILEVEL
[2016-06-08] MEDS ORDERED: SODIUM CHLOR 0.9% 1000 ML INJ 2,000 ML IV SCH (06:00)
[2016-06-08] MEDS ORDERED: PHARMACY ORDERED LAB ONE (06:00)
[2016-06-08] MEDS ORDERED: ALBUMIN HUMAN 25% 25 GM/100 ML BAGP IV ONE ×2 (06:03→06:15)
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
[2016-06-08] MEDS: CHLORHEXIDINE 0.12% (ORAL KIT) 15 ML CUP MT SCH ×2 (08:00→19:57)
[2016-06-08] MEDS: FAMOTIDINE 20 MG/2 ML VIAL IV PUSH SCH (08:05)
[2016-06-08] MEDS ORDERED: SODIUM BICARBONATE 8.4% INJ 50 ML ONE (08:48)
[2016-06-08] MEDS: SODIUM CHLORIDE 0.9% FLUSH 10 ML FLUSH IV FLUSH SCH ×2 (09:00→19:58)
[2016-06-08] MEDS: BACITRACIN TOP OINT 15 GM TUBE TOPICAL SCH ×2 (09:00→19:58)
[2016-06-08] MEDS: SENNOSIDES SYRUP 8.8 MG/5 ML CUP PEG SCH ×2 (09:00→19:58)
[2016-06-08] MEDS: SODIUM CHLORIDE 0.9% FLUSH 10 ML FLUSH IVF SCH (09:00)
[2016-06-08] MEDS: ARTIFICIAL TEARS OPTH SOLN 15 ML BTL EACH EYE SCH ×3 (09:00→19:56)
[2016-06-08] MEDS: DOCUSATE SODIUM 100 MG CAP PO SCH ×2 (09:00→19:58)
[2016-06-08] MEDS: POLYETHYLENE GLYCOL 17 GM PKG PO SCH ×2 (09:00→19:58)
[2016-06-08] MEDS: BENEPROTEIN POWDER 1 PACK G-TUBE SCH ×2 (09:00→13:00)
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
[2016-06-08] MEDS: levETIRAcetam INJ 500 MG in SODIUM CHLORIDE 0.9% INJ 100 ML IV SCH ×2 (09:58→19:57)
[2016-06-08] MEDS: fentaNYL DRIP 250 ML IV SCH ×2 (09:58→20:00)
--- NOTE | 2016-06-08 10:21 | EKG ---
Date Performed: 06/07/2016 Time Performed: 12:43:02 PTAGE: 65 years EKG: Sinus rhythm Short TX interval Compared to previous tracing, the patient is no longer in atrial fibrillation. [facility] ECG PREVIOUS TRACING : 06/05/2016 22.00 DOCTOR: Isabel Solo Interpretating Date/Time 06/08/2016 10:20:16
[2016-06-08] MEDS: PHENYLEPHRINE INJ 80 MG in SODIUM CHLORID 0.9% 500 ML INJ 492 ML IV SCH ×3 (10:44→20:17)
[2016-06-08] MEDS: SODIUM BICARBONATE 8.4% INJ 50 MEQ in SODIUM CHLOR 0.45% 1000 ML INJ 1,000 ML IV SCH ×3 (11:00→20:00)
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
[2016-06-08] MEDS ORDERED: VANCOMYCIN INJ 1,750 MG in SODIUM CHLORID 0.9% 500 ML INJ 500 ML IV ONE (14:00)
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
--- NOTE | 2016-06-08 18:03 | RADRPT ---
EXAM DATE/TIME: 06/08/2016 15:45 [facility] COMPARISON: ABDOMEN KUB ONLY, June 07, 2016, 6:44. INDICATIONS : Evaluate for ileus. MEDICAL HISTORY : Cardiovascular disease. Renal disease, end stage. SURGICAL HISTORY : None. ENCOUNTER: Subsequent ACUITY: 1 week PAIN SCORE: Non-responsive. LOCATION: Abdomen, all quadrants. FINDINGS: Supine view of the abdomen was performed. The abdominal bowel gas pattern is normal. No abnormal ma sses, calcifications, or organomegaly is seen. The osseous structures are unremarkable. CONCLUSION: 1. No evidence of obstruction. John Ibanez MD on June 08, 2016 at 18:01 Board Certified Radiologist. This report was verified electronically.
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
[2016-06-08] MEDS: LEVOFLOXACIN 500 MG PREMIX INJ 100 ML IV SCH (19:56)
[2016-06-08] MEDS: MINERAL OIL LIQUID 30 ML CUP PO SCH (19:58)
[2016-06-08] MEDS: NOREPINEPHRINE INJ 16 MG in SODIUM CHLOR 0.9% 250 ML INJ 234 ML IV SCH (20:17)
[2016-06-08] MEDS ORDERED: BUMETANIDE INJ 1 MG/4 ML VIAL IV PUSH ONE (21:15)
[2016-06-09] VITALS (19 sets, daily range): BP systolic 98–130; BP diastolic 51–70; PULSE 68–109; RESP 13–35; TEMP 97–98.3; O2SAT 93–98
[2016-06-09] MEDS: DILTIAZEM HCL 30 MG TAB PO SCH ×4 (00:14→17:39)
[2016-06-09] MEDS: LACTULOSE SYRUP 20 GM/30 ML CUP PO SCH ×4 (00:14→17:39)
[2016-06-09] MEDS: SODIUM CHLOR 0.45% 1000 ML INJ 1,000 ML IV SCH ×3 (00:15→16:50)
[2016-06-09] MEDS: PIPERACIL-TAZO 3.375 GM PREMIX 50 ML IV SCH ×2 (01:43→08:24)
[2016-06-09] MEDS: SODIUM BICARBONATE 8.4% INJ 50 MEQ in SODIUM CHLOR 0.45% 1000 ML INJ 1,000 ML IV SCH ×2 (01:43→08:00)
[2016-06-09] MEDS ORDERED: DIGOXIN 0.5 MG/2 ML VIAL IV SCH (02:45)
[2016-06-09] MEDS: PHENYLEPHRINE INJ 80 MG in SODIUM CHLORID 0.9% 500 ML INJ 492 ML IV SCH (03:42)
[2016-06-09] MEDS: RESP: ALBUTEROL 2.5 MG/IPRATROPIUM 0.5 MG NEB (SCH) INH ×4 (03:58→19:53)
[2016-06-09] MEDS: FREE WATER G-TUBE SCH ×6 (04:00→20:00)
[2016-06-09] MEDS: INSULIN NovoLIN REGULAR SUPPLEMENTAL SCALE SQ SCH ×6 (04:00→20:00)
[2016-06-09] MEDS: CHLORHEXIDINE GLUCONATE 2 % 1 PACK (2 CLOTHS) TOP SCH (04:00)
[2016-06-09] MEDS: EPOPROSTENOL NEB SOLUTION 50 NG/KG/MIN 100 ML NEB SCH ×6 (04:06→20:00)
[2016-06-09 04:12] LABS: HEMATOCRIT 22.9 % (39.0-51.0); MEAN CELL VOLUME 88.8 FL (80.0-100.0); MEAN CORPUSCULAR HEMOGLOBIN 28.9 PG (27.0-34.0); MEAN CORPUSCULAR HGB CONC 32.5 % (32.0-36.0); PLATELET COUNT 159 TH/MM3 (150-450); RED BLOOD COUNT 2.57 MIL/MM3 (4.50-5.90); WHITE BLOOD COUNT 20.8 TH/MM3 (4.0-11.0)
[2016-06-09 04:14] LABS: HEMO FLAGS AUTO DIFF
[2016-06-09 04:54] LABS: ALKALINE PHOSPHATASE 350 U/L (45-117); ALT (GPT) 13 U/L (12-78); ANION GAP 11 MEQ/L (5-15); AST (GOT) 34 U/L (15-37); BICARBONATE 19.8 MEQ/L (21.0-32.0); BLOOD UREA NITROGEN 75 MG/DL (7-18); CHLORIDE 118 MEQ/L (98-107); GLOMERULAR FILTRATION RATE 13 ML/MIN (>89); SODIUM (NA) 149 MEQ/L (136-145); TOTAL BILIRUBIN ADULT 1.5 MG/DL (0.2-1.0)
[2016-06-09 05:04] LABS: CREATINE KINASE 87 U/L (39-308)
[2016-06-09 05:09] LABS: BLOOD GAS BASE EXCESS -9.3 mmol/L (-2-2); BLOOD GAS CARBOXYHEMOGLOBIN 1.2 % (0-4); BLOOD GAS HCO3 18 mmol/L (22-26); BLOOD GAS METHEMOGLOBIN 1.2 % (0-2); BLOOD GAS O2 HGB SATURATION 92 % (90-100); BLOOD GAS OXYGEN CONTENT 13.6 Vol % (12.0-20.0); BLOOD GAS PCO2 55 mmHg (38-42); BLOOD GAS PO2 80 mmHg (61-120); BLOOD GAS TOTAL HGB 10.5 G/DL (12.0-16.0); TEMP CORR TO 98.6
[2016-06-09 05:10] LABS: CRITICAL VALUE YES; OXYGEN DEVICE VENTILATOR
[2016-06-09 05:11] LABS: DRAW SITE ART LINE; FIO2 75 %; STAT NO; VENT SETTINGS BIPHASIC
--- NOTE | 2016-06-09 06:16 | RADRPT ---
EXAM DATE/TIME: 06/09/2016 05:20 [facility] COMPARISON: CHEST SINGLE AP, June 08, 2016, 2:45. INDICATIONS : Shortness of breath. MEDICAL HISTORY : Hypertension. Renal insufficiency, chronic SURGICAL HISTORY : None. ENCOUNTER: Subsequent ACUITY: 1 week PAIN SCORE: Non-responsive. LOCATION: Bilateral chest FINDINGS: A single portable frontal view the chest is blurred by motion artifact. Diffuse bilateral pulmonary i nfiltrates have shown some progression from the prior study. A left thoracostomy tube noted. Left-edmundo ed rib fractures. Heart is mildly enlarged. No definitive effusions. The endotracheal tube 5 cm from the stuart. Nasogastric tube coiled in the stomach. CONCLUSION: Worsening diffuse bilateral infiltrates. Jason Holden Jr., MD on June 09, 2016 at 6:14 Board Certified Radiologist. This report was verified electronically.
[2016-06-09] MEDS: METOCLOPRAMIDE HCL 10 MG/2 ML VIAL IV PUSH SCH ×3 (06:17→22:00)
[2016-06-09] MEDS: PROPRANOLOL HCL 10 MG TAB PO SCH ×3 (06:18→21:31)
[2016-06-09 06:48] LABS: BANDS 29 % (0-6); CORRECTED NUCLEATED RBC 1 /100 WBC (0-0); NEUTROPHIL # MANUAL DIFF 18.1 TH/MM3 (1.8-7.7); POLYS (SEG NEUTROPHILS) 58 % (16-70); WBC DIFF SAMPLE 100
[2016-06-09 06:50] LABS: ACANTHOCYTES OCC (NORMAL); PLATELET ESTIMATE SMEAR NORMAL (NORMAL); PLATELET MORPHOLOGY NORMAL (NORMAL); SCAN/DIFF FINAL DIFF MANUAL
--- NOTE | 2016-06-09 07:06 | PD.ORT.PN ---
Subjective Subjective Remarks s/p left clavicle, left acromion, ribs and left scapula fxs patient respiratory status has been declining and unstable. on pressors. Objective Vitals Vital Signs Date Time Temp Pulse Resp B/P Pulse Ox O2 Delivery O2 Flow Rate FiO2 06/09/16 06:00 100 119/61 06/09/16 06:00 100 06/09/16 04:15 75 06/09/16 04:05 98 75 06/09/16 04:00 80 06/09/16 04:00 106 06/09/16 04:00 98.3 106 15 125/58 96 06/09/16 02:00 76 06/09/16 00:00 73 06/09/16 00:00 98.1 73 13 110/51 96 06/09/16 00:00 80 06/08/16 23:58 96 80 06/08/16 22:00 79 06/08/16 20:51 94 80 06/08/16 20:00 80 06/08/16 20:00 98.0 76 21 109/53 99 06/08/16 20:00 80 06/08/16 18:00 74 06/08/16 18:00 97 113/55 06/08/16 16:35 96 80 06/08/16 16:00 97.7 106 28 116/62 99 06/08/16 16:00 106 06/08/16 16:00 80 06/08/16 14:00 107 06/08/16 12:11 97 80 06/08/16 12:00 97.5 108 32 110/57 97 06/08/16 12:00 100 06/08/16 12:00 108 06/08/16 10:00 85 06/08/16 08:40 98 80 06/08/16 08:00 100 06/08/16 08:00 83 06/08/16 08:00 97.9 83 12 123/48 100 I/O 06/08/16 06/08/16 06/08/16 06/09/16 06/09/16 06/09/16 07:00 15:00 23:00 07:00 15:00 23:00 Intake Total 3746 ml 2801 ml 3289 ml 2732 ml Output Total 210 ml 450 ml 710 ml 1070 ml Balance 3536 ml 2351 ml 2579 ml 1662 ml IV Total 3746 ml 2801 ml 3289 ml 2732 ml Tube Feeding 0 ml 0 ml Output Urine Total 100 ml 200 ml 200 ml 750 ml Gastric Drainage Total 400 ml 200 ml Chest Tube Drainage Total 110 ml 250 ml 110 ml 120 ml # Bowel Movements 0 0 0 0 Result Diagram: 06/09/1639906/09/16399 Imaging Last 24 hours Impressions Chest X-Ray 06/04/16 0600 Signed Impressions: Service Date/Time: Saturday, June 04, 2016 06:28 - CONCLUSION: Stable chest x-ray. Left chest tube is present and no the pneumothorax is visualized. There is atelectasis at the lung bases. Olegario uYsuf MD Objective Remarks LUE: dressings clean and dry. intact Assessment & Plan Assessment and Plan 1) Left clavicle and scapular fractures. The patient continues to be intubated in the intensive care unit Nonweightbearing left upper extremity per nurse, patient has been unstable from a respiratory standpoint and is still on pressors. will unlikely be ready for surgery soon. Continue Daily dressing changes with bacitracin and Adaptic over left shoulder Gavin Sharma Jun 09, 2016 07:06
[2016-06-09] MEDS: CHLORHEXIDINE 0.12% (ORAL KIT) 15 ML CUP MT SCH ×2 (08:00→20:00)
[2016-06-09] MEDS: POLYETHYLENE GLYCOL 17 GM PKG PO SCH ×2 (08:24→21:34)
[2016-06-09] MEDS: FAMOTIDINE 20 MG/2 ML VIAL IV PUSH SCH (08:24)
[2016-06-09] MEDS: SENNOSIDES SYRUP 8.8 MG/5 ML CUP PEG SCH ×2 (08:24→21:31)
[2016-06-09] MEDS: levETIRAcetam INJ 500 MG in SODIUM CHLORIDE 0.9% INJ 100 ML IV SCH (08:24)
[2016-06-09] MEDS: SODIUM CHLORIDE 0.9% FLUSH 10 ML FLUSH IVF SCH (09:00)
[2016-06-09] MEDS: ARTIFICIAL TEARS OPTH SOLN 15 ML BTL EACH EYE SCH ×3 (09:00→18:00)
[2016-06-09] MEDS: DOCUSATE SODIUM 100 MG CAP PO SCH ×2 (09:00→21:31)
[2016-06-09] MEDS: SODIUM CHLORIDE 0.9% FLUSH 10 ML FLUSH IV FLUSH SCH ×2 (09:00→21:31)
[2016-06-09] MEDS: BACITRACIN TOP OINT 15 GM TUBE TOPICAL SCH ×2 (09:00→21:00)
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
[2016-06-09] MEDS ORDERED: SODIUM CHLOR 0.9% 250 ML INJ 250 ML IV ONE (11:00)
[2016-06-09] MEDS: BUMETANIDE INJ 1 MG/4 ML VIAL IV PUSH SCH ×2 (11:29→17:39)
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
[2016-06-09] MEDS: PIPERACIL-TAZO 2.25 GM PREMIX 50 ML IV SCH ×2 (15:59→21:32)
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
[2016-06-09] MEDS: MINERAL OIL LIQUID 30 ML CUP PO SCH (21:31)
[2016-06-10] VITALS (18 sets, daily range): BP systolic 96–135; BP diastolic 48–87; PULSE 108–116; RESP 24–37; TEMP 98.1–99.3; O2SAT 92–97
[2016-06-10] MEDS: PIPERACIL-TAZO 2.25 GM PREMIX 50 ML IV SCH ×4 (01:40→22:18)
[2016-06-10] MEDS: LACTULOSE SYRUP 20 GM/30 ML CUP PO SCH ×4 (01:40→17:32)
[2016-06-10] MEDS: EPOPROSTENOL NEB SOLUTION 50 NG/KG/MIN 100 ML NEB SCH ×2 (01:40)
[2016-06-10] MEDS: DILTIAZEM HCL 30 MG TAB PO SCH ×4 (01:40→17:32)
[2016-06-10] MEDS: RESP: ALBUTEROL 2.5 MG/IPRATROPIUM 0.5 MG NEB (SCH) INH (03:46)
[2016-06-10] MEDS: FREE WATER G-TUBE SCH ×6 (04:00→20:00)
[2016-06-10] MEDS: INSULIN NovoLIN REGULAR SUPPLEMENTAL SCALE SQ SCH ×6 (04:00→20:00)
[2016-06-10] MEDS: CHLORHEXIDINE GLUCONATE 2 % 1 PACK (2 CLOTHS) TOP SCH (04:00)
[2016-06-10] MEDS: PROPRANOLOL HCL 10 MG TAB PO SCH ×3 (05:02→22:15)
[2016-06-10] MEDS: METOCLOPRAMIDE HCL 10 MG/2 ML VIAL IV PUSH SCH ×3 (05:02→22:14)
[2016-06-10 05:19] LABS: AUTOMATED NEUTROPHIL # 19.1 TH/MM3 (1.8-7.7); EOSINOPHIL % 0.1 % (0.0-4.0); HEMATOCRIT 26.3 % (39.0-51.0); LYMPH % 2.2 % (9.0-44.0); LYMPHOCYTE # 0.4 TH/MM3 (1.0-4.8); MEAN CELL VOLUME 87.2 FL (80.0-100.0); MEAN CORPUSCULAR HEMOGLOBIN 29.2 PG (27.0-34.0); MEAN CORPUSCULAR HGB CONC 33.5 % (32.0-36.0); MONO % 3.4 % (0.0-8.0); NEUT % 94.3 % (16.0-70.0); PLATELET COUNT 157 TH/MM3 (150-450); RED BLOOD COUNT 3.02 MIL/MM3 (4.50-5.90); RED CELL DISTRIBUTION WIDTH 16.3 % (11.6-17.2); WHITE BLOOD COUNT 20.2 TH/MM3 (4.0-11.0)
[2016-06-10 05:23] LABS: HEMO FLAGS AUTO DIFF
[2016-06-10 05:39] LABS: BLOOD GAS BASE EXCESS -6.8 mmol/L (-2-2); BLOOD GAS CARBOXYHEMOGLOBIN 1.4 % (0-4); BLOOD GAS HCO3 20 mmol/L (22-26); BLOOD GAS METHEMOGLOBIN 1.1 % (0-2); BLOOD GAS O2 HGB SATURATION 86 % (90-100); BLOOD GAS OXYGEN CONTENT 13.3 Vol % (12.0-20.0); BLOOD GAS PCO2 57 mmHg (38-42); BLOOD GAS PO2 64 mmHg (61-120); BLOOD GAS TOTAL HGB 10.9 G/DL (12.0-16.0); CRITICAL VALUE YES; OXYGEN DEVICE VENTILATOR; TEMP CORR TO 98.6
[2016-06-10 05:40] LABS: DRAW SITE ART LINE; FIO2 80 %; STAT NO; VENT SETTINGS APRV
[2016-06-10 05:42] LABS: BICARBONATE 22.3 MEQ/L (21.0-32.0); BICARBONATE 23.2 MEQ/L (21.0-32.0); MAGNESIUM 2.3 MG/DL (1.5-2.5); POTASSIUM 4.6 MEQ/L (3.5-5.1)
[2016-06-10 07:07] LABS: PLATELET ESTIMATE SMEAR NORMAL (NORMAL); PLATELET MORPHOLOGY ENLARGED (NORMAL); SCAN/DIFF AUTO DIFF CONFIRMED
[2016-06-10] MEDS: CHLORHEXIDINE 0.12% (ORAL KIT) 15 ML CUP MT SCH ×2 (08:00→20:00)
[2016-06-10] MEDS: RESP: ALBUTEROL 2.5 MG/3 ML NEB (PRN) INH ×2 (08:13→19:51)
--- NOTE | 2016-06-10 08:16 | RADRPT ---
EXAM DATE/TIME: 06/10/2016 07:42 [facility] COMPARISON: CHEST SINGLE AP, June 09, 2016, 5:20. INDICATIONS : Evaluate infiltrates MEDICAL HISTORY : Hypertension. Renal insufficiency, chronic SURGICAL HISTORY : None. ENCOUNTER: Subsequent ACUITY: 1 week PAIN SCORE: Non-responsive. LOCATION: Bilateral chest FINDINGS: 2 AP views of the chest. Endotracheal tube, nasogastric tube, right subclavian central venous cathete r, and left-sided chest tubes remain in place. Prominent bilateral diffuse pulmonary parenchymal opac ity unchanged. Cardiomediastinal silhouette unchanged. Bilateral pleural effusions unchanged. CONCLUSION: No significant interval change with persistent severe bilateral pulmonary opacity and bilateral pleur al effusions. Ciro Dyson MD on June 10, 2016 at 8:14 Board Certified Radiologist. This report was verified electronically.
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
[2016-06-10] MEDS: BUMETANIDE INJ 1 MG/4 ML VIAL IV PUSH SCH ×2 (08:49→17:32)
[2016-06-10] MEDS: METOLAZONE 5 MG TAB NG SCH (08:50)
[2016-06-10] MEDS: FAMOTIDINE 20 MG/2 ML VIAL IV PUSH SCH (08:50)
[2016-06-10] MEDS: SENNOSIDES SYRUP 8.8 MG/5 ML CUP PEG SCH ×2 (08:50→22:14)
[2016-06-10] MEDS: POLYETHYLENE GLYCOL 17 GM PKG PO SCH ×2 (08:50→22:14)
[2016-06-10] MEDS: SODIUM CHLORIDE 0.9% FLUSH 10 ML FLUSH IV FLUSH SCH ×2 (09:00→21:00)
[2016-06-10] MEDS: BACITRACIN TOP OINT 15 GM TUBE TOPICAL SCH ×2 (09:00→21:00)
[2016-06-10] MEDS: ARTIFICIAL TEARS OPTH SOLN 15 ML BTL EACH EYE SCH ×3 (09:00→17:32)
[2016-06-10] MEDS: DOCUSATE SODIUM 100 MG CAP PO SCH ×2 (09:00→22:15)
[2016-06-10] MEDS: SODIUM CHLORIDE 0.9% FLUSH 10 ML FLUSH IVF SCH (09:00)
[2016-06-10] MEDS ORDERED: SODIUM BICARBONATE 8.4% INJ 50 MEQ/50 ML SYR IV PUSH ONE (10:15)
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
[2016-06-10] MEDS: NOREPINEPHRINE INJ 16 MG in SODIUM CHLOR 0.9% 250 ML INJ 234 ML IV SCH (12:49)
[2016-06-10] MEDS: PHENYLEPHRINE INJ 80 MG in SODIUM CHLORID 0.9% 500 ML INJ 492 ML IV SCH (12:49)
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
[2016-06-10] MEDS: ALBUMIN HUMAN 25% 25 GM/100 ML BAGP IV SCH (15:26)
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
--- NOTE | 2016-06-10 16:45 | HHI.HCPN ---
Palliative care meeting set up with patient brother Reji for tomorrow 06/11/16 at 11 AM. . Jenna Gray Jun 10, 2016 16:45
[2016-06-10] MEDS ORDERED: VANCOMYCIN INJ 1,750 MG in SODIUM CHLORID 0.9% 500 ML INJ 500 ML IV ONE (18:00)
--- NOTE | 2016-06-10 18:12 | HHI.IDPN ---
Subjective Subjective Remarks doing poorly requiring high vent settings + low grade fevers fluid overload not tolerating TF not much secretions on pressors unstable Antibiotics zosyn levaquin vancomycin Allergies: Coded Allergies: No Known Allergies (Unverified , 11/28/15) Objective . Vital Signs Date Time Temp Pulse Resp B/P Pulse Ox O2 Delivery O2 Flow Rate FiO2 06/10/16 16:00 111 06/10/16 16:00 99.3 111 37 111/59 96 06/10/16 16:00 95 06/10/16 15:37 95 85 06/10/16 14:00 111 06/10/16 12:00 95 06/10/16 12:00 114 06/10/16 12:00 99.1 114 35 96/48 95 06/10/16 11:04 93 95 06/10/16 10:00 111 06/10/16 08:04 95 100 06/10/16 08:00 98.8 112 34 98/52 97 06/10/16 08:00 112 06/10/16 08:00 80 06/10/16 06:00 112 06/10/16 06:00 112 06/10/16 04:00 111 06/10/16 04:00 80 06/10/16 04:00 98.8 108 34 100/53 92 06/10/16 03:46 94 80 06/10/16 02:00 111 06/10/16 00:00 80 06/10/16 00:00 109 06/10/16 00:00 98.1 108 24 105/54 96 06/09/16 23:29 97 80 06/09/16 22:00 108 06/09/16 20:00 80 06/09/16 20:00 109 06/09/16 20:00 97.5 69 27 103/51 95 06/09/16 19:53 96 80 06/09/16 06/09/16 06/10/16 15:00 23:00 07:00 Intake Total 1868 ml 750 ml 521 ml Output Total 2090 ml 0 ml 300 ml Balance -222 ml 750 ml 221 ml IV Total 1868 ml 250 ml 201 ml Packed Cells 500 ml Other 320 ml Output Urine Total 1700 ml Gastric Drainage Total 300 ml 0 ml 300 ml Chest Tube Drainage Total 90 ml # Bowel Movements 0 . Laboratory Tests Test 06/09/16 06/10/16 04:00 04:15 White Blood Count 20.8 TH/MM3 20.2 TH/MM3 Red Blood Count 2.57 MIL/MM3 3.02 MIL/MM3 Hemoglobin 7.4 GM/DL 8.8 GM/DL Hematocrit 22.9 % 26.3 % Mean Corpuscular Volume 88.8 FL 87.2 FL Mean Corpuscular Hemoglobin 28.9 PG 29.2 PG Mean Corpuscular Hemoglobin 32.5 % 33.5 % Concent Red Cell Distribution Width 16.0 % 16.3 % Platelet Count 159 TH/MM3 157 TH/MM3 Mean Platelet Volume 9.9 FL 10.3 FL Neutrophils (%) (Auto) % 94.3 % Lymphocytes (%) (Auto) % 2.2 % Monocytes (%) (Auto) % 3.4 % Eosinophils (%) (Auto) % 0.1 % Basophils (%) (Auto) % 0.0 % Neutrophils # (Auto) TH/MM3 19.1 TH/MM3 Lymphocytes # (Auto) TH/MM3 0.4 TH/MM3 Monocytes # (Auto) TH/MM3 0.7 TH/MM3 Eosinophils # (Auto) TH/MM3 0.0 TH/MM3 Basophils # (Auto) TH/MM3 0.0 TH/MM3 CBC Comment AUTO DIFF AUTO DIFF Differential Total Cells 100 Counted Neutrophils % (Manual) 58 % Band Neutrophils % 29 % Lymphocytes % 4 % Monocytes % 9 % Neutrophils # (Manual) 18.1 TH/MM3 Nucleated Red Blood Cells 1 /100 WBC Differential Comment FINAL DIFF AUTO DIFF MANUAL CONFIRMED Platelet Estimate NORMAL NORMAL Platelet Morphology Comment NORMAL ENLARGED Acanthocytes OCC Laboratory Tests Test 06/09/16 06/10/16 04:00 04:15 Sodium Level 149 MEQ/L 151 MEQ/L Potassium Level 5.0 MEQ/L 4.6 MEQ/L Chloride Level 118 MEQ/L 116 MEQ/L Carbon Dioxide Level 19.8 MEQ/L 22.3 MEQ/L Anion Gap 11 MEQ/L 13 MEQ/L Blood Urea Nitrogen 75 MG/DL 90 MG/DL Creatinine 4.64 MG/DL 5.29 MG/DL Estimat Glomerular Filtration 13 ML/MIN 11 ML/MIN Rate Random Glucose 70 MG/DL 84 MG/DL Calcium Level 7.5 MG/DL 7.6 MG/DL Total Bilirubin 1.5 MG/DL Aspartate Amino Transf 34 U/L (AST/SGOT) Alanine Aminotransferase 13 U/L (ALT/SGPT) Alkaline Phosphatase 350 U/L Total Creatine Kinase 87 U/L Total Protein 4.9 GM/DL Albumin 1.4 GM/DL 1.4 GM/DL Phosphorus Level 6.0 MG/DL Magnesium Level 2.3 MG/DL Microbiology Date/Time Procedure Status Source Growth 06/08/16 02:00 Gram Stain - Final Complete Sputum Endotracheal 06/08/16 02:00 Sputum Culture - Final Complete Pseudomonas Species Imaging Last Impressions Chest X-Ray 06/10/16 0000 Signed Impressions: Service Date/Time: June 07:42 - CONCLUSION: No significant interval change with persistent severe bilateral pulmonary opacity and bilateral pleural effusions. Ciro Dyson MD Abdomen X-Ray 06/08/16 0600 Signed Impressions: Service Date/Time: Wednesday, June 08, 2016 15:45 - CONCLUSION: 1. No evidence of obstruction. John Ibanez MD Abdomen/Pelvis CT 06/07/16 0000 Signed Impressions: Service Date/Time: Tuesday, June 07, 2016 13:58 - CONCLUSION: 1. There are areas of consolidation in both lung bases. There is patchy infiltrate seen in the right middle lobe. 2. Gaseous distention of the colon. 3. Atrophy of the right kidney. 4. The oral gastric tube is present with the tip at the gastroesophageal junction. 5. Arterial line in place in the left groin. 6. Multiple left-sided rib fractures. Jean Paul Blunt MD Renal Ultrasound 06/06/16 0000 Signed Impressions: Service Date/Time: Monday, June 06, 2016 07:38 - CONCLUSION: 1. Small atrophic right kidney with renal stone. 2. Normal sized left kidney without hydronephrosis. Asif Blunt MD FACR Neck Magnetic Resonance Angiography 06/06/16 0000 Signed Impressions: Service Date/Time: Monday, June 06, 2016 11:46 - CONCLUSION: Negative for hemodynamically significant stenosis. Asif Blunt MD FACR Lower Extremity Ultrasound 06/06/16 0000 Signed Impressions: Service Date/Time: Monday, June 06, 2016 07:54 - CONCLUSION: Negative for deep venous thrombosis. Asif Blunt MD FACR Head Magnetic Resonance Angiography 06/06/16 0000 Signed Impressions: Service Date/Time: Monday, June 06, 2016 11:46 - CONCLUSION: Moderate intracranial atherosclerotic vascular disease. Asif Blunt MD FACR Brain MRI 06/05/162020 Signed Impressions: Service Date/Time: Sunday, June 05, 2016 21:02 - CONCLUSION: 1. MRI demonstrates evidence of an acute nonhemorrhagic infarction in the right MCA [employer] watershed zone. 2. Bilateral frontal left parietal and bilateral occipital parenchymal hemorrhages. As would be expected, many more images are discernible on the susceptibility weighted images and on prior CTs. Jason Hinojosa MD Head CT 06/03/16 0800 Signed Impressions: Service Date/Time: May 10:59 - CONCLUSION: 1. The only interval change has been the development of small volume subarachnoid hemorrhage bilaterally. The remaining sites of hemorrhage are stable. 2. No signs of herniation or midline shift. Jason Holden Jr., MD Thoracic Spine CT 06/02/161428 Signed Impressions: Service Date/Time: Thursday, June 02, 2016 14:50 - CONCLUSION: 1. Acute fractures involving the left scapula and multiple left ribs with associated subcutaneous air over the left hemithorax. Please see the CT of the thorax dictated separately. 2. Atrophy of the right kidney. 3. No thoracic spine fracture observed. 4. Diffuse disc space narrowing with anterior osteophytes. Central canal is patent throughout. Jason Holden Jr., MD Pelvis X-Ray 06/02/161428 Signed Impressions: Service Date/Time: Thursday, June 02, 2016 14:20 - CONCLUSION: Limited but unremarkable study. Jason Holden Jr., MD Maxillofacial CT 06/02/161428 Signed Impressions: Service Date/Time: Thursday, June 02, 2016 14:49 - CONCLUSION: 1. No fracture. 2. Air-fluid levels in the sphenoid sinuses with soft tissue density in the nasal passages probably related to recent intubation. 3. Benign bony protuberance off the hard palate. Dameon Conley MD Lumbar Spine CT 06/02/161428 Signed Impressions: Service Date/Time: Thursday, June 02, 2016 14:50 - CONCLUSION: 1. No acute fracture of the lumbar spine. 2. Degenerative changes as detailed above. 3. Atrophy of the right kidney. Jason Holden Jr., MD Chest CT 06/02/161428 Signed Impressions: Service Date/Time: Thursday, June 02, 2016 14:54 - CONCLUSION: 1. Small left pneumothorax. 2. Extensively comminuted fracture through the left scapula. Simple fracture of the left clavicle. 3. Multiple posterior and lateral left rib fractures. Fractures include a comminuted injury at the costovertebral junction of the left second rib.. Dameon Conley MD Cervical Spine CT 06/02/16 1429 Signed Impressions: Service Date/Time: Thursday, June 02, 2016 14:48 - CONCLUSION: 1. Comminuted and minimally displaced fracture through the posterior aspect of the left 2nd rib near the costovertebral junction. 2. Nondisplaced linear fracture through the superior articulating facet rightward at C6. 3. Otherwise, chronic changes with some uncovertebral ridging most prominent from C3-C4 through C5- C6. No vertebral body fracture is identified. Dameon Conley MD Upper Extremity CT 06/02/16 0000 Signed Impressions: Service Date/Time: Thursday, June 02, 2016 21:55 - CONCLUSION: Acute comminuted displaced fracture involving the left scapula body and acromium. Acute fractures involving multiple left ribs and left clavicle. Degenerative changes involving the left acromioclavicular joint. Mendez Williamson MD Knee X-Ray 06/02/16 0000 Signed Impressions: Service Date/Time: Thursday, June 02, 2016 15:30 - CONCLUSION: No acute disease. Jason Holden Jr., MD Physical Exam CONSTITUTIONAL/GENERAL: This is an adequately nourished patient, in no apparent distress. TUBES/LINES/DRAINS: SKIN: No jaundice, rashes. Multiple abrasions Skin temperature appropriate. Not diaphoretic. HEAD: Normocephalic. EYES: Pupils equal and round and reactive. No scleral icterus. No injection or drainage. Fundi not examined. ENT: Nose without bleeding or purulent drainage. Carmen musoae moist Orally intubated NECK: Trachea midline. Supple, nontender. CARDIOVASCULAR: Regular rate and rhythm without murmurs, gallops, or rubs. No JVD. Peripheral pulses symmetric. RESPIRATORY/CHEST: Symmetric, unlabored respirations. Diffuse rhonchi to auscultation. No wheezes, rales, or rhonchi. L chest tubein place with serosang dc GASTROINTESTINAL: Abdomen soft, no reaction to palpation, markedly distended and tympanic in upper part of abdomen No hepato-splenomegaly, or palpable masses. No guarding. Bowel sounds present. GENITOURINARY: Without palpable bladder distension. Mccormick catheter in place with clear yellow urine MUSCULOSKELETAL: Extremities without clubbing, cyanosis, 4+ tight edema. No joint tenderness or effusion noted. No calf tenderness. No mottling or clubbing. LYMPHATICS: No palpable cervical or supraclavicular adenopathy. NEUROLOGICAL: Unresponsive. Not breathing over the vent. Minimal gag and cough. Not following commands Eyes closed PSYCHIATRIC: unable to assess Assessment & Plan Remarks Traumatic brain injury Right frontotemporal parietal subdural hematoma 10 mm with bifrontal parenchymal hemorrhages in left frontoparietal watershed distribution hemorrhage and periventricular frontal hemorrhages adjacent to the posterior body of left lateral ventricle. Costovertebral ridging C3 to C6 Anterior osteophytes T12 to L3 Ridging C3 to C6 Nondisplaced fracture C6 articular facet to the right Acute VDRF, severe, requiring very high vent settings Prehospital aspiration PNA - pseudomonas, citrobacter Leukocytosis, bandemia Severe ileus - cont zosyn - start IV levaquine - dc vancomycin CT abd when feasible Sosa Kent MD Jun 10, 2016 18:12
--- NOTE | 2016-06-10 20:55 | RADRPT ---
EXAM DATE/TIME: 06/10/2016 19:43 [facility] COMPARISON: CT ABDOMEN & PELVIS W/O CONTRAST, June 07, 2016, 13:58. ABDOMEN KUB ONLY, June 08, 2016, 15:45. INDICATIONS : Distention MEDICAL HISTORY : Cardiovascular disease. Renal disease, end stage. SURGICAL HISTORY : None. ENCOUNTER: Subsequent ACUITY: 1 week PAIN SCORE: Non-responsive. LOCATION: Abdomen FINDINGS: The colon is distended measuring 8.6 cm in size and not changed. No definite small bowel obstruction is seen. CONCLUSION: Probable colonic ileus not changed. Gabino Razo MD on June 10, 2016 at 20:52 Board Certified Radiologist. This report was verified electronically.
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
[2016-06-10] MEDS: LEVOFLOXACIN 500 MG PREMIX INJ 100 ML IV SCH (22:15)
[2016-06-10] MEDS: MINERAL OIL LIQUID 30 ML CUP PO SCH (22:15)
[2016-06-11] VITALS (19 sets, daily range): BP systolic 93–131; BP diastolic 50–64; PULSE 115–125; RESP 32–38; TEMP 98.4–99.5; O2SAT 89–96
[2016-06-11] MEDS: VANCOMYCIN 500 MG VIAL (FOR ORAL USE ONLY) PO SCH
[2016-06-11] MEDS: PIPERACIL-TAZO 2.25 GM PREMIX 50 ML IV SCH ×4 (02:43→21:27)
[2016-06-11] MEDS: ALBUMIN HUMAN 25% 25 GM/100 ML BAGP IV SCH ×2 (02:44→14:43)
[2016-06-11] MEDS: INSULIN NovoLIN REGULAR SUPPLEMENTAL SCALE SQ SCH ×6 (04:00→20:00)
[2016-06-11] MEDS: CHLORHEXIDINE GLUCONATE 2 % 1 PACK (2 CLOTHS) TOP SCH (04:00)
[2016-06-11] MEDS: FREE WATER G-TUBE SCH ×7 (04:00→23:51)
--- NOTE | 2016-06-11 04:12 | RADRPT ---
EXAM DATE/TIME: 06/11/2016 03:51 [facility] COMPARISON: CHEST SINGLE AP, June 09, 2016, 5:20. CHEST SINGLE AP, June 10, 2016, 7:42. INDICATIONS : Shortness of breath. MEDICAL HISTORY : Hypertension. Renal insufficiency, chronic. SURGICAL HISTORY : None. ENCOUNTER: Subsequent ACUITY: 1 week PAIN SCORE: Non-responsive. LOCATION: Bilateral chest FINDINGS: There is improvement in the aeration of the left lung slightly, however the right lung mainly air spa ce process appears possibly slightly worse. Lines and tubes are present not significantly changed. Si gnificant bilateral alveolar process remains represent pulmonary edema. CONCLUSION: There is slight improvement in the aeration of the left lung, however the right lung appears worse. Gabino Razo MD on June 11, 2016 at 4:09 Board Certified Radiologist. This report was verified electronically.
[2016-06-11 05:33] LABS: BASOPHIL % 0.1 % (0.0-2.0); EOSINOPHIL % 0.1 % (0.0-4.0); LYMPH % 2.7 % (9.0-44.0); LYMPHOCYTE # 0.5 TH/MM3 (1.0-4.8); MEAN CELL VOLUME 87.3 FL (80.0-100.0); MEAN CORPUSCULAR HGB CONC 33.2 % (32.0-36.0); NEUT % 94.1 % (16.0-70.0); PLATELET COUNT 191 TH/MM3 (150-450); RED BLOOD COUNT 2.98 MIL/MM3 (4.50-5.90); RED CELL DISTRIBUTION WIDTH 15.8 % (11.6-17.2); WHITE BLOOD COUNT 20.1 TH/MM3 (4.0-11.0)
[2016-06-11 05:38] LABS: HEMO FLAGS AUTO DIFF
[2016-06-11 05:47] LABS: INTERNATIONAL NORMALIZED RATIO 1.2 RATIO
[2016-06-11] MEDS: METOCLOPRAMIDE HCL 10 MG/2 ML VIAL IV PUSH SCH ×3 (06:00→21:27)
[2016-06-11] MEDS: PROPRANOLOL HCL 10 MG TAB PO SCH ×3 (06:00→21:50)
[2016-06-11] MEDS: DILTIAZEM HCL 30 MG TAB PO SCH ×5 (06:00→23:53)
[2016-06-11] MEDS: LACTULOSE SYRUP 20 GM/30 ML CUP PO SCH ×5 (06:00→23:51)
[2016-06-11 06:15] LABS: BICARBONATE 24.1 MEQ/L (21.0-32.0); POTASSIUM 4.1 MEQ/L (3.5-5.1)
[2016-06-11 06:54] LABS: BANDS 13 % (0-6); DOHLE BODIES PRESENT (NONE SEEN); NEUTROPHIL # MANUAL DIFF 19.3 TH/MM3 (1.8-7.7); POLYS (SEG NEUTROPHILS) 83 % (16-70); WBC DIFF SAMPLE 100
[2016-06-11 06:55] LABS: ACANTHOCYTES OCC (NORMAL); KERATOCYTES OCC (NORMAL); PLATELET ESTIMATE SMEAR NORMAL (NORMAL); PLATELET MORPHOLOGY NORMAL (NORMAL); SCAN/DIFF FINAL DIFF MANUAL
--- NOTE | 2016-06-11 07:19 | PD.ORT.PN ---
Subjective Subjective Remarks s/p left clavicle, left acromion, ribs and left scapula fxs patient respiratory status has been declining and unstable. on pressors. Objective Vitals Vital Signs Date Time Temp Pulse Resp B/P Pulse Ox O2 Delivery O2 Flow Rate FiO2 06/11/16 04:21 95 75 06/11/16 04:00 99.3 115 32 93/50 94 06/11/16 04:00 115 06/11/16 04:00 95 06/11/16 02:00 116 06/11/16 01:26 96 80 06/11/16 00:00 95 06/11/16 00:00 99.3 115 32 93/50 94 06/11/16 00:00 115 06/10/16 22:14 96 80 06/10/16 22:00 116 06/10/16 20:00 95 06/10/16 20:00 114 06/10/16 20:00 99.1 114 29 103/52 95 06/10/16 19:52 95 80 06/10/16 18:00 113 06/10/16 18:00 113 135/87 06/10/16 16:00 111 06/10/16 16:00 99.3 111 37 111/59 96 06/10/16 16:00 95 06/10/16 15:37 95 85 06/10/16 14:00 111 06/10/16 12:00 95 06/10/16 12:00 114 06/10/16 12:00 99.1 114 35 96/48 95 06/10/16 11:04 93 95 06/10/16 10:00 111 06/10/16 08:04 95 100 06/10/16 08:00 98.8 112 34 98/52 97 06/10/16 08:00 112 06/10/16 08:00 80 I/O 06/10/16 06/10/16 06/10/16 06/11/16 06/11/16 06/11/16 07:00 15:00 23:00 07:00 15:00 23:00 Intake Total 521 ml 691 ml 832 ml Output Total 300 ml 2200 ml 2000 ml Balance 221 ml -1509 ml -1168 ml IV Total 201 ml 491 ml 832 ml Other 320 ml 200 ml Output Urine Total 2200 ml 2000 ml Gastric Drainage Total 300 ml 0 ml Chest Tube Drainage Total 0 ml # Bowel Movements 0 0 Result Diagram: 06/11/16 0445 06/11/16 0445 Other Results Laboratory Tests Test 06/11/16 04:45 Prothrombin Time 13.0 SEC (9.8-11.6) Prothromb Time International 1.2 RATIO Ratio Imaging Last 24 hours Impressions Chest X-Ray 06/04/16 0600 Signed Impressions: Service Date/Time: Saturday, June 04, 2016 06:28 - CONCLUSION: Stable chest x-ray. Left chest tube is present and no the pneumothorax is visualized. There is atelectasis at the lung bases. Olegario Yusuf MD Objective Remarks LUE: dressings clean and dry. intact Assessment & Plan Assessment and Plan 1) Left clavicle and scapular fractures. The patient continues to be intubated in the intensive care unit Nonweightbearing left upper extremity per nurse, patient has been unstable from a respiratory standpoint and is still on pressors. will unlikely be ready for surgery soon. Palliative care consulted. Continue Daily dressing changes with bacitracin and Adaptic over left shoulder Gavin Sharma Jun 11, 2016 07:19
[2016-06-11] MEDS: ARTIFICIAL TEARS OPTH SOLN 15 ML BTL EACH EYE SCH ×3 (08:27→17:14)
[2016-06-11] MEDS: CHLORHEXIDINE 0.12% (ORAL KIT) 15 ML CUP MT SCH ×2 (08:27→21:21)
[2016-06-11] MEDS: FAMOTIDINE 20 MG/2 ML VIAL IV PUSH SCH (08:27)
[2016-06-11] MEDS: BACITRACIN TOP OINT 15 GM TUBE TOPICAL SCH ×2 (08:27→21:20)
[2016-06-11] MEDS: BUMETANIDE INJ 1 MG/4 ML VIAL IV PUSH SCH ×2 (08:28→17:13)
[2016-06-11] MEDS: METOLAZONE 5 MG TAB NG SCH (08:28)
[2016-06-11] MEDS: NOREPINEPHRINE INJ 16 MG in SODIUM CHLOR 0.9% 250 ML INJ 234 ML IV SCH ×2 (08:29→18:47)
[2016-06-11] MEDS: SODIUM CHLORIDE 0.9% FLUSH 10 ML FLUSH IVF SCH (08:30)
[2016-06-11] MEDS: SODIUM CHLORIDE 0.9% FLUSH 10 ML FLUSH IV FLUSH SCH ×2 (08:30→21:21)
[2016-06-11] MEDS: SENNOSIDES SYRUP 8.8 MG/5 ML CUP PEG SCH ×2 (08:39→21:00)
[2016-06-11] MEDS: POLYETHYLENE GLYCOL 17 GM PKG PO SCH ×2 (08:39→21:00)
[2016-06-11] MEDS: DOCUSATE SODIUM 100 MG CAP PO SCH ×2 (08:39→21:00)
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
[2016-06-11] MEDS ORDERED: SODIUM CHLOR 0.9% 1000 ML INJ 1,000 ML IV PRN ×3 (10:31)
[2016-06-11] MEDS ORDERED: diphenhydrAMINE HCL 25 MG CAP PO PRN (10:45)
[2016-06-11] MEDS ORDERED: ALBUMIN HUMAN 25% 25 GM/100 ML BAGP IV PRN (10:45)
[2016-06-11] MEDS ORDERED: GENTAMICIN SULFATE (DIALYSIS USE ONLY) 20 MG/2 ML VIAL IV PRN (10:45)
[2016-06-11] MEDS ORDERED: MANNITOL 12.5 GM/50 ML VIAL IV PRN (10:45)
[2016-06-11] MEDS ORDERED: HEPARIN SODIUM - IV 10,000 UNITS/10 ML VIAL PRN (10:45)
[2016-06-11] MEDS ORDERED: NITROGLYCERIN 0.4 MG SL 25 TABS/BTL SL PRN (10:45)
[2016-06-11] MEDS ORDERED: ACETAMINOPHEN 325 MG TAB PO PRN (10:45)
[2016-06-11] MEDS ORDERED: cloNIDine HCL 0.1 MG TAB PO PRN (10:45)
[2016-06-11] MEDS ORDERED: SODIUM CHLORIDE 0.9% FLUSH 10 ML FLUSH IV FLUSH PRN (10:45)
[2016-06-11] MEDS ORDERED: HEPARIN SODIUM - IV 10,000 UNITS/10 ML VIAL IVF PRN (10:45)
[2016-06-11] MEDS ORDERED: GELATIN 12 MM/7 MM FOAM TOP PRN (10:45)
[2016-06-11] MEDS ORDERED: ONDANSETRON HCL 4 MG/2 ML VIAL IV PRN (10:45)
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
--- NOTE | 2016-06-11 14:44 | HHI.IDPN ---
Subjective Subjective Remarks doing poorly requiring high vent settings + low grade fevers fluid overload not tolerating TF not much secretions remains on pressors unstable no neurological improvement + stooling Antibiotics zosyn levaquin Allergies: Coded Allergies: No Known Allergies (Unverified , 11/28/15) Objective . Vital Signs Date Time Temp Pulse Resp B/P Pulse Ox O2 Delivery O2 Flow Rate FiO2 06/11/16 12:45 89 75 06/11/16 12:35 119 131/64 06/11/16 12:00 98.4 119 38 131/64 90 06/11/16 12:00 75 06/11/16 12:00 119 06/11/16 10:00 116 06/11/16 09:11 89 75 06/11/16 08:00 99.0 116 34 111/54 90 06/11/16 08:00 116 06/11/16 08:00 75 06/11/16 08:00 116 111/54 06/11/16 06:00 116 06/11/16 04:21 95 75 06/11/16 04:00 99.3 115 32 93/50 94 06/11/16 04:00 115 06/11/16 04:00 95 06/11/16 02:00 116 06/11/16 01:26 96 80 06/11/16 00:00 95 06/11/16 00:00 99.3 115 32 93/50 94 06/11/16 00:00 115 06/10/16 22:14 96 80 06/10/16 22:00 116 06/10/16 20:00 95 06/10/16 20:00 114 06/10/16 20:00 99.1 114 29 103/52 95 06/10/16 19:52 95 80 06/10/16 18:00 113 06/10/16 18:00 113 135/87 06/10/16 16:00 111 06/10/16 16:00 99.3 111 37 111/59 96 06/10/16 16:00 95 06/10/16 15:37 95 85 06/10/16 06/10/16 06/11/16 15:00 23:00 07:00 Intake Total 691 ml 832 ml 743 ml Output Total 2200 ml 2000 ml 2500 ml Balance -1509 ml -1168 ml -1757 ml IV Total 491 ml 832 ml 743 ml Other 200 ml Output Urine Total 2200 ml 2000 ml 2500 ml Gastric Drainage Total 0 ml Chest Tube Drainage Total 0 ml # Bowel Movements 0 0 . Laboratory Tests Test 06/10/16 06/11/16 04:15 04:45 White Blood Count 20.2 TH/MM3 20.1 TH/MM3 Red Blood Count 3.02 MIL/MM3 2.98 MIL/MM3 Hemoglobin 8.8 GM/DL 8.6 GM/DL Hematocrit 26.3 % 26.0 % Mean Corpuscular Volume 87.2 FL 87.3 FL Mean Corpuscular Hemoglobin 29.2 PG 29.0 PG Mean Corpuscular Hemoglobin 33.5 % 33.2 % Concent Red Cell Distribution Width 16.3 % 15.8 % Platelet Count 157 TH/MM3 191 TH/MM3 Mean Platelet Volume 10.3 FL 10.7 FL Neutrophils (%) (Auto) 94.3 % 94.1 % Lymphocytes (%) (Auto) 2.2 % 2.7 % Monocytes (%) (Auto) 3.4 % 3.0 % Eosinophils (%) (Auto) 0.1 % 0.1 % Basophils (%) (Auto) 0.0 % 0.1 % Neutrophils # (Auto) 19.1 TH/MM3 19.0 TH/MM3 Lymphocytes # (Auto) 0.4 TH/MM3 0.5 TH/MM3 Monocytes # (Auto) 0.7 TH/MM3 0.6 TH/MM3 Eosinophils # (Auto) 0.0 TH/MM3 0.0 TH/MM3 Basophils # (Auto) 0.0 TH/MM3 0.0 TH/MM3 CBC Comment AUTO DIFF AUTO DIFF Differential Comment AUTO DIFF FINAL DIFF CONFIRMED MANUAL Platelet Estimate NORMAL NORMAL Platelet Morphology Comment ENLARGED NORMAL Differential Total Cells 100 Counted Neutrophils % (Manual) 83 % Band Neutrophils % 13 % Lymphocytes % 3 % Monocytes % 1 % Neutrophils # (Manual) 19.3 TH/MM3 Dohle Bodies PRESENT Acanthocytes OCC Keratocytes OCC Laboratory Tests Test 06/10/16 06/11/16 04:15 04:45 Sodium Level 151 MEQ/L 152 MEQ/L Potassium Level 4.6 MEQ/L 4.1 MEQ/L Chloride Level 116 MEQ/L 114 MEQ/L Carbon Dioxide Level 22.3 MEQ/L 24.1 MEQ/L Anion Gap 13 MEQ/L 14 MEQ/L Blood Urea Nitrogen 90 MG/DL 112 MG/DL Creatinine 5.29 MG/DL 6.07 MG/DL Estimat Glomerular Filtration 11 ML/MIN 9 ML/MIN Rate Random Glucose 84 MG/DL 94 MG/DL Calcium Level 7.6 MG/DL 7.1 MG/DL Phosphorus Level 6.0 MG/DL 7.5 MG/DL Magnesium Level 2.3 MG/DL Albumin 1.4 GM/DL 1.8 GM/DL Imaging Last Impressions Chest X-Ray 06/11/16 0000 Signed Impressions: Service Date/Time: Saturday, June 11, 2016 03:51 - CONCLUSION: There is slight improvement in the aeration of the left lung, however the right lung appears worse. Gabino Razo MD Abdomen X-Ray 06/10/16 0000 Signed Impressions: Service Date/Time: June 19:43 - CONCLUSION: Probable colonic ileus not changed. Gabino Razo MD Abdomen/Pelvis CT 06/07/16 Signed Impressions: Service Date/Time: Tuesday, June 07, 2016 13:58 - CONCLUSION: 1. There are areas of consolidation in both lung bases. There is patchy infiltrate seen in the right middle lobe. 2. Gaseous distention of the colon. 3. Atrophy of the right kidney. 4. The oral gastric tube is present with the tip at the gastroesophageal junction. 5. Arterial line in place in the left groin. 6. Multiple left-sided rib fractures. Jean Paul Blunt MD Renal Ultrasound 06/06/16 Signed Impressions: Service Date/Time: Monday, June 06, 2016 07:38 - CONCLUSION: 1. Small atrophic right kidney with renal stone. 2. Normal sized left kidney without hydronephrosis. Asif Blunt MD FACR Neck Magnetic Resonance Angiography 06/06/16 0000 Signed Impressions: Service Date/Time: Monday, June 06, 2016 11:46 - CONCLUSION: Negative for hemodynamically significant stenosis. Asif Blunt MD FACAnnie Lower Extremity Ultrasound 06/06/16 Signed Impressions: Service Date/Time: Monday, June 06, 2016 07:54 - CONCLUSION: Negative for deep venous thrombosis. Asif Blunt MD FACR Head Magnetic Resonance Angiography 06/06/16 Signed Impressions: Service Date/Time: Monday, June 06, 2016 11:46 - CONCLUSION: Moderate intracranial atherosclerotic vascular disease. Asif Blunt MD FACR Brain MRI 06/05/162020 Signed Impressions: Service Date/Time: Sunday, June 05, 2016 21:02 - CONCLUSION: 1. MRI demonstrates evidence of an acute nonhemorrhagic infarction in the right MCA [employer] watershed zone. 2. Bilateral frontal left parietal and bilateral occipital parenchymal hemorrhages. As would be expected, many more images are discernible on the susceptibility weighted images and on prior CTs. Jason Hinojosa MD Head CT 06/03/16 0800 Signed Impressions: Service Date/Time: May 10:59 - CONCLUSION: 1. The only interval change has been the development of small volume subarachnoid hemorrhage bilaterally. The remaining sites of hemorrhage are stable. 2. No signs of herniation or midline shift. Jason Holden Jr., MD Thoracic Spine CT 06/02/161428 Signed Impressions: Service Date/Time: Thursday, June 02, 2016 14:50 - CONCLUSION: 1. Acute fractures involving the left scapula and multiple left ribs with associated subcutaneous air over the left hemithorax. Please see the CT of the thorax dictated separately. 2. Atrophy of the right kidney. 3. No thoracic spine fracture observed. 4. Diffuse disc space narrowing with anterior osteophytes. Central canal is patent throughout. Jason Holden Jr., MD Pelvis X-Ray 06/02/161428 Signed Impressions: Service Date/Time: Thursday, June 02, 2016 14:20 - CONCLUSION: Limited but unremarkable study. Jason Holden Jr., MD Maxillofacial CT 06/02/161428 Signed Impressions: Service Date/Time: Thursday, June 02, 2016 14:49 - CONCLUSION: 1. No fracture. 2. Air-fluid levels in the sphenoid sinuses with soft tissue density in the nasal passages probably related to recent intubation. 3. Benign bony protuberance off the hard palate. Dameon Conley MD Lumbar Spine CT 06/02/161428 Signed Impressions: Service Date/Time: Thursday, June 02, 2016 14:50 - CONCLUSION: 1. No acute fracture of the lumbar spine. 2. Degenerative changes as detailed above. 3. Atrophy of the right kidney. Jason Holden Jr., MD Chest CT 06/02/161428 Signed Impressions: Service Date/Time: Thursday, June 02, 2016 14:54 - CONCLUSION: 1. Small left pneumothorax. 2. Extensively comminuted fracture through the left scapula. Simple fracture of the left clavicle. 3. Multiple posterior and lateral left rib fractures. Fractures include a comminuted injury at the costovertebral junction of the left second rib.. Dameon Conley MD Cervical Spine CT 06/02/16 1429 Signed Impressions: Service Date/Time: Thursday, June 02, 2016 14:48 - CONCLUSION: 1. Comminuted and minimally displaced fracture through the posterior aspect of the left 2nd rib near the costovertebral junction. 2. Nondisplaced linear fracture through the superior articulating facet rightward at C6. 3. Otherwise, chronic changes with some uncovertebral ridging most prominent from C3-C4 through C5- C6. No vertebral body fracture is identified. Dameon Conley MD Upper Extremity CT 06/02/16 0000 Signed Impressions: Service Date/Time: Thursday, June 02, 2016 21:55 - CONCLUSION: Acute comminuted displaced fracture involving the left scapula body and acromium. Acute fractures involving multiple left ribs and left clavicle. Degenerative changes involving the left acromioclavicular joint. Mendez Williamson MD Knee X-Ray 06/02/16 0000 Signed Impressions: Service Date/Time: Thursday, June 02, 2016 15:30 - CONCLUSION: No acute disease. Jason Holden Jr., MD Physical Exam CONSTITUTIONAL/GENERAL: This is an adequately nourished patient, in no apparent distress. TUBES/LINES/DRAINS: SKIN: No jaundice, rashes. Multiple abrasions Skin temperature appropriate. Not diaphoretic. HEAD: Normocephalic. EYES: Pupils equal and round and reactive. No scleral icterus. No injection or drainage. Fundi not examined. ENT: Nose without bleeding or purulent drainage. Carmen musoae moist Orally intubated NECK: Trachea midline. Supple, nontender. CARDIOVASCULAR: Regular rate and rhythm without murmurs, gallops, or rubs. No JVD. Peripheral pulses symmetric. RESPIRATORY/CHEST: Symmetric, unlabored respirations. Diffuse rhonchi to auscultation. No wheezes, rales, or rhonchi. L chest tubein place with serosang dc GASTROINTESTINAL: Abdomen soft, no reaction to palpation, markedly distended and tympanic in upper part of abdomen No hepato-splenomegaly, or palpable masses. No guarding. Bowel sounds present. GENITOURINARY: Without palpable bladder distension. Mccormick catheter in place with clear yellow urine MUSCULOSKELETAL: Extremities without clubbing, cyanosis, 4+ tight edema. No joint tenderness or effusion noted. No calf tenderness. No mottling or clubbing. LYMPHATICS: No palpable cervical or supraclavicular adenopathy. NEUROLOGICAL: Unresponsive. Not breathing over the vent. Minimal gag and cough. Not following commands Eyes closed PSYCHIATRIC: unable to assess Assessment & Plan Remarks Traumatic brain injury Right frontotemporal parietal subdural hematoma 10 mm with bifrontal parenchymal hemorrhages in left frontoparietal watershed distribution hemorrhage and periventricular frontal hemorrhages adjacent to the posterior body of left lateral ventricle. Costovertebral ridging C3 to C6 Anterior osteophytes T12 to L3 Ridging C3 to C6 Nondisplaced fracture C6 articular facet to the right Acute VDRF, severe, requiring very high vent settings Prehospital aspiration PNA - pseudomonas, citrobacter Leukocytosis, bandemia Severe ileus Poor neurological and overlal prognosis On alt code, family considering w/d - cont zosyn - cont IV levaquine - dc vancomycin - stool for C.diff dw Sosa Martinez MD Jun 11, 2016 14:44
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
[2016-06-11] MEDS: PHENYLEPHRINE INJ 80 MG in SODIUM CHLORID 0.9% 500 ML INJ 492 ML IV SCH (18:47)
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
[2016-06-11 19:06] LABS: C. DIFF EPI 027 PRESUMPTIVE NEGATIVE (NEGATIVE)
[2016-06-11 19:09] LABS: C. DIFF TOXIN PCR POSITIVE (NEGATIVE)
--- NOTE | 2016-06-11 19:44 | HHI.PR ---
Addendum to Inpatient Note Additional Information C.diff positive started on IV flagyl + po vanco 500 Sosa Vega MD Jun 11, 2016 19:44
[2016-06-11] MEDS: MINERAL OIL LIQUID 30 ML CUP PO SCH (21:00)
[2016-06-11] MEDS: metroNIDAZOLE 500 MG INJ 100 ML IV SCH (21:26)
[2016-06-12] VITALS (19 sets, daily range): BP systolic 102–120; BP diastolic 51–59; PULSE 124–134; RESP 17–36; TEMP 98.2–99.9; O2SAT 79–93
[2016-06-12] MEDS: PIPERACIL-TAZO 2.25 GM PREMIX 50 ML IV SCH ×4 (01:42→22:11)
[2016-06-12] MEDS: ALBUMIN HUMAN 25% 25 GM/100 ML BAGP IV SCH ×2 (02:35→14:51)
[2016-06-12 03:07] LABS: BLOOD GAS BASE EXCESS -3.7 mmol/L (-2-2); BLOOD GAS CARBOXYHEMOGLOBIN 1.5 % (0-4); BLOOD GAS HCO3 23 mmol/L (22-26); BLOOD GAS METHEMOGLOBIN 1.1 % (0-2); BLOOD GAS O2 HGB SATURATION 83 % (90-100); BLOOD GAS OXYGEN CONTENT 10.6 Vol % (12.0-20.0); BLOOD GAS PCO2 54 mmHg (38-42); BLOOD GAS PO2 59 mmHg (61-120); CRITICAL VALUE YES; DRAW SITE ART LINE; FIO2 100 %; LITER FLOW 15 L/M; OXYGEN DEVICE AMBU BAG; STAT YES; TEMP CORR TO 98.6
[2016-06-12] MEDS: RESP: ALBUTEROL 2.5 MG/3 ML NEB (PRN) INH (03:12)
[2016-06-12] MEDS ORDERED: MORPHINE SULFATE 8 MG/ML INJ ONE (03:12)
[2016-06-12] MEDS ORDERED: LORazepam 2 MG/ML VIAL ONE (03:13)
[2016-06-12] MEDS ORDERED: LORazepam 2 MG/ML VIAL IV ONE (03:30)
[2016-06-12] MEDS ORDERED: MORPHINE SULFATE 8 MG/ML INJ IV PUSH ONE (03:30)
[2016-06-12] MEDS: CHLORHEXIDINE GLUCONATE 2 % 1 PACK (2 CLOTHS) TOP SCH (04:00)
[2016-06-12] MEDS: FREE WATER G-TUBE SCH ×6 (04:00→22:11)
[2016-06-12] MEDS: INSULIN NovoLIN REGULAR SUPPLEMENTAL SCALE SQ SCH ×6 (04:00→20:00)
[2016-06-12] MEDS: metroNIDAZOLE 500 MG INJ 100 ML IV SCH ×3 (04:30→20:42)
[2016-06-12 05:01] LABS: AUTOMATED NEUTROPHIL # 18.7 TH/MM3 (1.8-7.7); BASOPHIL % 0.2 % (0.0-2.0); EOSINOPHIL # 0.1 TH/MM3 (0-0.4); EOSINOPHIL % 0.3 % (0.0-4.0); HEMATOCRIT 28.2 % (39.0-51.0); HEMO FLAGS DIFF FINAL; LYMPH % 5.6 % (9.0-44.0); LYMPHOCYTE # 1.2 TH/MM3 (1.0-4.8); MEAN CELL VOLUME 89.2 FL (80.0-100.0); MEAN CORPUSCULAR HGB CONC 32.5 % (32.0-36.0); NEUT % 89.9 % (16.0-70.0); PLATELET COUNT 188 TH/MM3 (150-450); RED BLOOD COUNT 3.16 MIL/MM3 (4.50-5.90); WHITE BLOOD COUNT 20.7 TH/MM3 (4.0-11.0)
[2016-06-12] MEDS: METOCLOPRAMIDE HCL 10 MG/2 ML VIAL IV PUSH SCH ×3 (05:14→20:44)
[2016-06-12 05:55] LABS: BICARBONATE 25.3 MEQ/L (21.0-32.0); CALCIUM-PROTEIN CORRECTED 7.6 MG/DL (8.5-10.1); POTASSIUM 3.8 MEQ/L (3.5-5.1); TOTAL BILIRUBIN ADULT 3.7 MG/DL (0.2-1.0)
[2016-06-12] MEDS: LACTULOSE SYRUP 20 GM/30 ML CUP PO SCH ×4 (06:00→22:11)
[2016-06-12] MEDS: DILTIAZEM HCL 30 MG TAB PO SCH ×4 (06:00→22:10)
[2016-06-12] MEDS: PROPRANOLOL HCL 10 MG TAB PO SCH ×3 (06:00→20:45)
[2016-06-12] MEDS: VANCOMYCIN 500 MG VIAL (FOR ORAL USE ONLY) PO SCH ×6 (06:00→22:10)
[2016-06-12] MEDS: POLYETHYLENE GLYCOL 17 GM PKG PO SCH ×2 (08:28→20:46)
[2016-06-12] MEDS: METOLAZONE 5 MG TAB NG SCH (08:28)
[2016-06-12] MEDS: CHLORHEXIDINE 0.12% (ORAL KIT) 15 ML CUP MT SCH ×2 (08:28→20:44)
[2016-06-12] MEDS: DOCUSATE SODIUM 100 MG CAP PO SCH ×2 (08:29→20:44)
[2016-06-12] MEDS: SENNOSIDES SYRUP 8.8 MG/5 ML CUP PEG SCH ×2 (08:29→20:44)
[2016-06-12] MEDS: PHENYLEPHRINE INJ 80 MG in SODIUM CHLORID 0.9% 500 ML INJ 492 ML IV SCH ×3 (08:29→20:42)
[2016-06-12] MEDS: FAMOTIDINE 20 MG/2 ML VIAL IV PUSH SCH (08:29)
[2016-06-12] MEDS: SODIUM CHLORIDE 0.9% FLUSH 10 ML FLUSH IV FLUSH SCH ×2 (08:30→22:00)
[2016-06-12] MEDS: BACITRACIN TOP OINT 15 GM TUBE TOPICAL SCH ×2 (08:30→20:46)
[2016-06-12] MEDS: ARTIFICIAL TEARS OPTH SOLN 15 ML BTL EACH EYE SCH ×3 (08:30→17:26)
[2016-06-12] MEDS: SODIUM CHLORIDE 0.9% FLUSH 10 ML FLUSH IVF SCH (08:30)
[2016-06-12] MEDS: BUMETANIDE INJ 1 MG/4 ML VIAL IV PUSH SCH ×2 (08:48→17:26)
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
[2016-06-12] MEDS: DEXTROSE 5% IN WATE 1000ML INJ 1,000 ML IV SCH (10:37)
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
[2016-06-12] MEDS: NOREPINEPHRINE INJ 16 MG in SODIUM CHLOR 0.9% 250 ML INJ 234 ML IV SCH (20:42)
[2016-06-12] MEDS: MINERAL OIL LIQUID 30 ML CUP PO SCH (20:44)
[2016-06-12] MEDS: fentaNYL DRIP 250 ML IV SCH (20:47)
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
[2016-06-13] VITALS (7 sets, daily range): BP systolic 104; BP diastolic 52; PULSE 115–123; RESP 12–13; TEMP 97.2–97.8; O2SAT 69–72
[2016-06-13] MEDS: ALBUMIN HUMAN 25% 25 GM/100 ML BAGP IV SCH (02:06)
[2016-06-13] MEDS: metroNIDAZOLE 500 MG INJ 100 ML IV SCH (02:06)
[2016-06-13] MEDS: CHLORHEXIDINE GLUCONATE 2 % 1 PACK (2 CLOTHS) TOP SCH (04:00)
[2016-06-13] MEDS: INSULIN NovoLIN REGULAR SUPPLEMENTAL SCALE SQ SCH ×2 (04:00)
[2016-06-13] MEDS: METOCLOPRAMIDE HCL 10 MG/2 ML VIAL IV PUSH SCH (04:48)
[2016-06-13] MEDS: DEXTROSE 5% IN WATE 1000ML INJ 1,000 ML IV SCH (04:49)
[2016-06-13] MEDS: FREE WATER G-TUBE SCH (04:49)
[2016-06-13] MEDS: PROPRANOLOL HCL 10 MG TAB PO SCH (04:49)
[2016-06-13] MEDS: DILTIAZEM HCL 30 MG TAB PO SCH (04:49)
[2016-06-13] MEDS: VANCOMYCIN 500 MG VIAL (FOR ORAL USE ONLY) PO SCH (04:49)
[2016-06-13] MEDS: LACTULOSE SYRUP 20 GM/30 ML CUP PO SCH (04:50)
[2016-06-13 05:30] LABS: AUTOMATED NEUTROPHIL # 18.2 TH/MM3 (1.8-7.7); BASOPHIL # 0.1 TH/MM3 (0-0.2); BASOPHIL % 0.3 % (0.0-2.0); EOSINOPHIL # 0.1 TH/MM3 (0-0.4); EOSINOPHIL % 0.4 % (0.0-4.0); HEMATOCRIT 25.8 % (39.0-51.0); LYMPH % 5.6 % (9.0-44.0); LYMPHOCYTE # 1.1 TH/MM3 (1.0-4.8); MEAN CELL VOLUME 91.3 FL (80.0-100.0); MEAN CORPUSCULAR HEMOGLOBIN 29.5 PG (27.0-34.0); MEAN CORPUSCULAR HGB CONC 32.3 % (32.0-36.0); MONO % 4.4 % (0.0-8.0); NEUT % 89.3 % (16.0-70.0); PLATELET COUNT 181 TH/MM3 (150-450); RED BLOOD COUNT 2.83 MIL/MM3 (4.50-5.90); WHITE BLOOD COUNT 20.4 TH/MM3 (4.0-11.0)
[2016-06-13 05:40] LABS: CALCIUM-PROTEIN CORRECTED 7.2 MG/DL (8.5-10.1); MAGNESIUM 2.9 MG/DL (1.5-2.5)
[2016-06-13 05:41] LABS: BICARBONATE 24.5 MEQ/L (21.0-32.0); POTASSIUM 4.7 MEQ/L (3.5-5.1); TOTAL BILIRUBIN ADULT 3.8 MG/DL (0.2-1.0)
[2016-06-13 06:06] LABS: HEMO FLAGS AUTO DIFF
[2016-06-13] MEDS: PHENYLEPHRINE INJ 80 MG in SODIUM CHLORID 0.9% 500 ML INJ 492 ML IV SCH (06:45)
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
[2016-06-13 09:12] LABS: BANDS 4 % (0-6); CORRECTED NUCLEATED RBC 2 /100 WBC (0-0); NEUTROPHIL # MANUAL DIFF 18.6 TH/MM3 (1.8-7.7); PLATELET ESTIMATE SMEAR NORMAL (NORMAL); PLATELET MORPHOLOGY ENLARGED (NORMAL); POLYS (SEG NEUTROPHILS) 87 % (16-70); SCAN/DIFF FINAL DIFF MANUAL; WBC DIFF SAMPLE 100
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
[2016-06-17 02:41] LABS: CRITICAL VALUE YES
[2016-06-18 00:24] LABS: CRITICAL VALUE YES
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
== END 2016-06-13 15:17 | disposition expired | DRG 963 ==
LOC: NEPI 14:26 → EDBD 15:31 → MERGE 15:31 → NEDA 15:31 → N03A 15:44
PROVIDERS: ADMIT Surgery Trauma Surgery; ATTEND Surgery Trauma Surgery
PROC: 4A103BD Monitoring of Intracranial Pressure, Percutaneous Approach (ICD-10-PCS; principal; 2016-06-02)
PROC: 30233K1 Transfusion of Nonautologous Frozen Plasma into Peripheral Vein, Percutaneous Approach (ICD-10-PCS; 2016-06-02)
PROC: 5A1955Z Respiratory Ventilation, Greater than 96 Consecutive Hours (ICD-10-PCS; 2016-06-02)
PROC: 04HY32Z Insertion of Monitoring Device into Lower Artery, Percutaneous Approach (ICD-10-PCS; 2016-06-02)
PROC: 0W9B30Z Drainage of Left Pleural Cavity with Drainage Device, Percutaneous Approach (ICD-10-PCS; 2016-06-02)
PROC: 0BH17EZ Insertion of Endotracheal Airway into Trachea, Via Natural or Artificial Opening (ICD-10-PCS; 2016-06-02)
PROC: 30233N1 Transfusion of Nonautologous Red Blood Cells into Peripheral Vein, Percutaneous Approach (ICD-10-PCS; 2016-06-02)
PROC: 0BCB8ZZ Extirpation of Matter from Left Lower Lobe Bronchus, Via Natural or Artificial Opening Endoscopic (ICD-10-PCS; 2016-06-07)
PROC: 0BC68ZZ Extirpation of Matter from Right Lower Lobe Bronchus, Via Natural or Artificial Opening Endoscopic (ICD-10-PCS; 2016-06-07)
PROC: 0BC58ZZ Extirpation of Matter from Right Middle Lobe Bronchus, Via Natural or Artificial Opening Endoscopic (ICD-10-PCS; 2016-06-07)
PROC: 0B968ZX Drainage of Right Lower Lobe Bronchus, Via Natural or Artificial Opening Endoscopic, Diagnostic (ICD-10-PCS; 2016-06-07)
PROC: 0B948ZX Drainage of Right Upper Lobe Bronchus, Via Natural or Artificial Opening Endoscopic, Diagnostic (ICD-10-PCS; 2016-06-08)
PROC: 0B958ZX Drainage of Right Middle Lobe Bronchus, Via Natural or Artificial Opening Endoscopic, Diagnostic (ICD-10-PCS; 2016-06-08)
DX: S06.5X9A Traumatic subdural hemorrhage with loss of consciousness of unspecified duration, initial encounter (principal); J96.01 Acute respiratory failure with hypoxia; S27.0XXA Traumatic pneumothorax, initial encounter; S06.339A Contusion and laceration of cerebrum, unspecified, with loss of consciousness of unspecified duration, initial encounter; I63.511 Cerebral infarction due to unspecified occlusion or stenosis of right middle cerebral artery; J69.0 Pneumonitis due to inhalation of food and vomit; N17.1 Acute kidney failure with acute cortical necrosis; A41.9 Sepsis, unspecified organism; R57.9 Shock, unspecified; S12.501A Unspecified nondisplaced fracture of sixth cervical vertebra, initial encounter for closed fracture; J15.1 Pneumonia due to Pseudomonas; E87.0 Hyperosmolality and hypernatremia; E87.2 Acidosis; S22.42XA Multiple fractures of ribs, left side, initial encounter for closed fracture; D62 Acute posthemorrhagic anemia; A04.7 Enterocolitis due to Clostridium difficile; E46 Unspecified protein-calorie malnutrition; K56.0 Paralytic ileus; T79.7XXA Traumatic subcutaneous emphysema, initial encounter; S27.321A Contusion of lung, unilateral, initial encounter; N18.3 Chronic kidney disease, stage 3 (moderate); D69.6 Thrombocytopenia, unspecified; I48.0 Paroxysmal atrial fibrillation; I12.9 Hypertensive chronic kidney disease with stage 1 through stage 4 chronic kidney disease, or unspecified chronic kidney disease; S42.112A Displaced fracture of body of scapula, left shoulder, initial encounter for closed fracture; S42.122A Displaced fracture of acromial process, left shoulder, initial encounter for closed fracture; S42.002A Fracture of unspecified part of left clavicle, initial encounter for closed fracture; N20.0 Calculus of kidney; E83.51 Hypocalcemia; E87.70 Fluid overload, unspecified; R40.2431 Glasgow coma scale score 3-8, in the field [EMT or ambulance]; S30.1XXA Contusion of abdominal wall, initial encounter; E83.39 Other disorders of phosphorus metabolism; M25.78 Osteophyte, vertebrae; S00.81XA Abrasion of other part of head, initial encounter; V29.9XXA Motorcycle rider (driver) (passenger) injured in unspecified traffic accident, initial encounter; Y92.410 Unspecified street and highway as the place of occurrence of the external cause; Z87.891 Personal history of nicotine dependence
CPT/HCPCS: 31500; 31624; 32551; 36430; 36556; 51702; 61210; 70450; 70486; 70544; 70547; 70551; 71010; 71260; 72125; 72128; 72131; 72170; 73200; 73560; 74000; 74176; 74177; 76775; 76937; 80048; 80053; 80061; 80069; 80074; 80076; 80202; 81001; 82140; 82435; 82550; 82552; 82565; 82570; 82805; 82947; 82948; 83605; 83735; 83930; 84100; 84132; 84145; 84155; 84295; 84300; 84443; 84484; 84520; 85007; 85025; 85027; 85384; 85610; 85730; 86850; 86900; 86901; 86920; 86927; 87015; 87040; 87070; 87077; 87086; 87102; 87116; 87186; 87205; 87206; 87493; 87641; 89051; 90471; 90715; 93005; 93306; 93970; 94002; 94003; 94640; 94664; 94770; 94799; 95819; 96374; 96375; 99291; G0390; J0171; J0282; J0461; J0690; J1160; J1325; J1364; J1953; J1956; J2060; J2212; J2250; J2270; J2370; J2543; J2765; J3010; J3370; J3430; J3475; J7030; J7040; J7050; J7060; J7070; J7613; L0150; P9016; P9017; P9047; Q9967